=== PATIENT | male | born 1975 | race Caucasian/White ===

== ENCOUNTER 2017-02-15 20:14 | Inpatient (IN) ==
[2017-02-15] MEDS ORDERED: Aspirin 81 MG TAB.CHEW PO ONE (21:02)
[2017-02-15] MEDS ORDERED: GI Cocktail 40 ML EACH PO ONE (21:02)
[2017-02-15] MEDS: Nitroglycerin 0.4 MG TAB.SUBL SL ONE (21:50)
[2017-02-15 21:57] LABS: INR 1.1; Prothrombin Time 11.8 Seconds (9.4-12.1)
[2017-02-15 21:58] LABS: Basophils % 0.4 %; Eosinophils # 0.1 K/mcL (0.0-0.6); Eosinophils % 0.9 %; Hematocrit 41.2 % (37.5-50.1); Hemoglobin 14.4 g/dL (12.9-16.9); Immature Granulocytes % 0.2 % (0-4); Lymphocytes # 2.5 K/mcL (0.6-4.6); Lymphocytes % 25.6 %; Mean Corpuscular Hemoglobin 29.8 pg (28.0-33.3); Mean Corpuscular Volume 85.3 fL (83.0-100.0); Mean Platelet Volume 11.4 fL (9.4-12.4); Monocytes # 0.5 K/mcL (0.0-1.3); Monocytes % 5.4 %; Neutrophils # 6.5 K/mcL (1.6-8.9); Platelet Count 190 K/mcL (140-400); Red Blood Count 4.83 M/mcL (4.19-5.50); Red Cell Distribution Width 12.3 % (11.5-14.5); Segmented Neutrophils % 67.5 %
[2017-02-15 22:05] LABS: BUN/Creatinine Ratio 11 (6-26); Blood Urea Nitrogen 10 mg/dL (8-26); Calcium 9.5 mg/dL (8.6-10.8); Carbon Dioxide 22 mEq/L (19-29); Chloride 107 mEq/L (98-109); Glucose 96 mg/dL (70-99); Osmolality,Calculated 287 (280-300); Sodium 139 mEq/L (136-145); eGFR For African Americans > 60 (> 60); eGFR For Non-African Americans > 60 (> 60)
--- NOTE | 2017-02-15 22:14 | Emergency Department Note ---
START Narrative - START START: For this encounter, I have reviewed the resident, TRANSACTIONAL PARALEGAL, or PA documentation, treatment plan, and medical decision making; and I have had face to face time with this patient. 42-year-old male presents with concerns of left-sided chest pain. Patient states the pain has occurred intermittently over the past few hours. The pain is described as a tightness and an aching in the left chest that radiates down the left arm. Patient states that he became short of breath with these episodes of chest pain however he denies nausea or diaphoresis. Patient reports that he had palpitations during the chest pain. He denies syncope. He has risk factors of hypertension, hyperlipidemia, tobacco abuse. Lungs are clear to auscultation. Heart was regular rate and rhythm without murmurs rubs or gallops. Patient had good perfusion in all extremities. Initial troponin showed a normal sinus rhythm with rate of 66 without evidence of STEMI. Initial troponin returned at 0.25. Chest x-ray does not show acute pathology. Patient will be admitted to the hospital for further care and evaluation of his chest pain and elevated troponin.
[2017-02-15] MEDS ORDERED: *HR* Heparin 5,000 UNIT/ML VIAL IVP ONE (22:18)
[2017-02-15] MEDS ORDERED: *HR* Heparin 5,000 UNIT/ML VIAL IVP PRN ×2 (22:18)
[2017-02-15] MEDS ORDERED: Heparin 25,000 UNIT/500 ML D5W 25,000 UNIT/500 ML MLS IVC SCH (22:30)
--- NOTE | 2017-02-15 22:54 | Emergency Department Note ---
Disposition Clinical Impression: NSTEMI (non-ST elevated myocardial infarction) Chest pain Qualifiers: Chest pain type: unspecified Qualified Code(s): R07.9 - Chest pain, unspecified Disposition: Admitted As Inpatient Condition: Good Referrals: NO,PCP [Primary Care Provider] - Forms: ED Satisfaction Letter Time of Disposition: 23:29 Chest Pain HPI - General Chief Complaint: ED Chest Pain Stated Complaint: CP Time Seen by Provider: 02/15/17 20:42 Source: patient Limitations: no limitations Vital Signs Reviewed: Yes Nursing Notes Reviewed: Yes - History of Present Illness HPI Narrative: Patient presents emergency room with chest pain to the left chest wall pain on the left arm. Symptom onset was approximately 11 AM this morning. Patient decided come to the emergency room because the symptoms would not get better. Patient denies any other specific medical history at this time. He does smoke but has no cardiac history. Denies any exertional symptoms at this time. Chest pain comes on at variable times and presentations. He has not taken any medication help with this. 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 An hour for about 30 minutes) Treatments prior to arrival chest pain: none - Related Data Home Medications Medication Instructions Recorded Confirmed Ibuprofen [Motrin] 400 mg PO Q6HR PRN 02/15/17 02/15/17 Allergies Allergy/AdvReac Type Severity Reaction Status Date / Time No Known Allergies Allergy Verified 02/15/17 20:27 All systems ED: reviewed and negative except as stated. Constitutional: Denies: fever Cardiovascular: Reports: chest pain. Denies: palpitations, dyspnea on exertion Respiratory: Denies: cough, dyspnea, wheezes Chest Pain PMH - Past Medical History Medical history: Reports: hyperlipidemia Psychiatric history: Reports: no psych history - Social History Smoking Status: Current every day smoker Alcohol use: Reports: rarely Drug use: Reports: marijuana Physical Exam - General Limitations: no limitations General appearance: alert - Chest Chest inspection: Present: normal inspection, symmetric chest wall rise. Absent : tenderness, rash - Respiratory Respiratory exam: Present: normal lung sounds bilaterally. Absent: respiratory distress, wheezes - Cardiovascular Cardiovascular exam: Present: regular rate, normal rhythm, normal heart sounds - Abdominal Exam Abdominal exam: Present: soft, Non-Tender, normal bowel sounds. Absent: tenderness, distention, guarding, rebound, rigidity, Harley's sign, Rovsing's sign, tenderness at McBurney's Point - Extremities Exam Extremities exam: Present: normal inspection, full ROM. Absent: tenderness, pedal edema - Back Exam Back exam: Present: normal inspection, full ROM - Neurological Exam Neurological exam: Present: alert, oriented X3, CN II-XII intact, normal gait - Psychiatric Psychiatric exam: Present: normal affect, normal mood - Skin Skin exam: Present: warm, dry, intact, normal color Course Course Narrative: Patient seen and examined the time of arrival. See history of present illness. 42-year-old male presents today with cardiac symptoms. Left-sided chest pain with radiation to left arm. Patient has tightness and pain in that arm with exertion and while at rest. He has never had any cardiac disease in the past. No family history of early cardiac . Patient has never had a catheterization or stent. He does smoke and has intermittent hypertension according to him. He does not have a primary care provider does not follow them closely. Patient provided with aspirin and nitroglycerin trial here EKG chest x-ray and labs ordered including troponin. There is concern for possible cardiac related issues secondary to the symptom presentation and history. Vital signs reviewed on presentation is afebrile heart rate is normal. EKG reviewed and essentially showing no acute signs of ST segment elevation. There is mild amplitude changes of unknown etiology. A comparable EKG in the system. Intervals are within normal limits. Patient is concerning for cardiac related issue. We will continue to monitor. Disposition treatment course to be completed. Lungs are clear heart is regular abdomen is soft no pulsatile masses. No other acute infectious etiology or other signs of trauma or injury noted. The patient is point. Patient is concerning for cardiac related issue and will follow closely. - Reevaluation(s) Reevaluation #1: Patient found to have a troponin of 0.25. Nitroglycerin trial was provided and he said that even prior to the nitroglycerin he felt like his chest pain went away. He has no chest pain at this time. Aspirin given. Because of the elevated troponin and normal EKG along with stable chest x-ray heparin drip along with recommendation for admission for what appears to be in an STEMI. Patient has not had any change in presentation of chest related issues at this point. Labs are otherwise normal. Admission process to be completed. Consultation and patient was placed out of the hospitalist at this point to bring the patient in for further evaluation and definitive management Time: 22:58 Reevaluation #2: Patient discussed with the hospitalist Dr. Kennedy. We reviewed the patient's presentation symptoms of medical history. On recommendation from him at this time a stat on a urine drug screen. Patient is stable upper drip started. No chest pain while here in the emergency room not this time. Patient will be admitted to the hospital for further evaluation. Time: 23:29 Vital Signs Temperature 98.4 F 02/15/17 20:27 Pulse Rate 67 02/15/17 20:27 Respiratory Rate 14 02/15/17 20:27 Blood Pressure 170/108 02/15/17 20:27 O2 Sat by Pulse Oximetry 99 02/15/17 20:27 Temperature 98.4 F 02/15/17 20:27 Pulse Rate 68 02/15/17 21:54 Respiratory Rate 18 02/15/17 21:54 Blood Pressure 163/102 02/15/17 21:54 O2 Sat by Pulse Oximetry 98 02/15/17 21:54 Oxygen Delivery Oxygen Delivery Room Air Chest Pain - MDM Narrative Medical decision making narrative: Non-ST segment elevation myocardial infarction, elevated troponin - Lab Data Result diagrams: 02/15/17 21:43 02/15/17 21:43 Lab Results 02/15/17 02/15/17 02/15/17 Range/Units 21:43 21:43 21:43 WBC 9.6 (4.3-11.1) K/mcL RBC 4.83 (4.19-5.50) M/mcL Hgb 14.4 (12.9-16.9) g/dL Hct 41.2 (37.5-50.1) % MCV 85.3 (83.0-100.0) fL MCH 29.8 (28.0-33.3) pg MCHC 35.0 (31.6-35.5) g/dL RDW 12.3 (11.5-14.5) % Plt Count 190 (140-400) K/mcL MPV 11.4 (9.4-12.4) fL Immature Gran % 0.2 (0-4) % Seg Neutrophils % 67.5 % Lymphocytes % 25.6 % Monocytes % 5.4 % Eosinophils % 0.9 % Basophils % 0.4 % Neutrophils # 6.5 (1.6-8.9) K/mcL Lymphocytes # 2.5 (0.6-4.6) K/mcL Monocytes # 0.5 (0.0-1.3) K/mcL Eosinophils # 0.1 (0.0-0.6) K/mcL Basophils # 0.0 (0.0-0.2) K/mcL PT 11.8 (9.4-12.1) Seconds INR 1.1 APTT 38.0 H (26.0-36.0) Seconds Sodium (136-145) mEq/L Potassium (3.5-4.5) mEq/L Chloride (98-109) mEq/L Carbon Dioxide (19-29) mEq/L BUN (8-26) mg/dL Creatinine (0.72-1.25) mg/dL Est GFR ( Amer) (> 60) Est GFR (Non-Af Amer) (> 60) BUN/Creatinine Ratio (6-26) Glucose (70-99) mg/dL Calculated Osmolality (280-300) Calcium (8.6-10.8) mg/dL Troponin I (0-0.03) ng/mL B-Natriuretic Peptide 14 (0-100) pg/mL 02/15/17 02/15/17 Range/Units 21:43 21:43 WBC (4.3-11.1) K/mcL RBC (4.19-5.50) M/mcL Hgb (12.9-16.9) g/dL Hct (37.5-50.1) % MCV (83.0-100.0) fL MCH (28.0-33.3) pg MCHC (31.6-35.5) g/dL RDW (11.5-14.5) % Plt Count (140-400) K/mcL MPV (9.4-12.4) fL Immature Gran % (0-4) % Seg Neutrophils % % Lymphocytes % % Monocytes % % Eosinophils % % Basophils % % Neutrophils # (1.6-8.9) K/mcL Lymphocytes # (0.6-4.6) K/mcL Monocytes # (0.0-1.3) K/mcL Eosinophils # (0.0-0.6) K/mcL Basophils # (0.0-0.2) K/mcL PT (9.4-12.1) Seconds INR APTT (26.0-36.0) Seconds Sodium 139 (136-145) mEq/L Potassium 4.0 (3.5-4.5) mEq/L Chloride 107 (98-109) mEq/L Carbon Dioxide 22 (19-29) mEq/L BUN 10 (8-26) mg/dL Creatinine 0.92 (0.72-1.25) mg/dL Est GFR ( Amer) > 60 (> 60) Est GFR (Non-Af Amer) > 60 (> 60) BUN/Creatinine Ratio 11 (6-26) Glucose 96 (70-99) mg/dL Calculated Osmolality 287 (280-300) Calcium 9.5 (8.6-10.8) mg/dL Troponin I 0.25 H* (0-0.03) ng/mL B-Natriuretic Peptide (0-100) pg/mL Heart Score - Score History: Moderately Suspicious EKG: Normal Age: Less than 45 Risk Factors: 1-2 risk factors Troponin: 1-3x normal limit HEART Score Total: 3
[2017-02-16] MEDS ORDERED: Naloxone 0.4 MG/ML INJ IVP PRN (01:34)
[2017-02-16] MEDS ORDERED: *HR* Promethazine 25 MG/ML VIAL IVP PRN (01:34)
[2017-02-16] MEDS ORDERED: 0.9 % Sodium Chloride 1,000 ML IVC SCH (01:45)
[2017-02-16] MEDS ORDERED: Nicotine 21 MG PATCH.TD24 TD PRN (02:14)
--- NOTE | 2017-02-16 02:22 | Internal Med History&Physical ---
<Zohreh Olmstead Angelic - Last Filed: 02/16/17 02:59> Date of Encounter: 02/16/17 Time of Encounter: 02:21 Assessment and Plan (1) NSTEMI (non-ST elevated myocardial infarction) Current visit: Yes Status: Acute trop .25 EKG:NSR CXR- will trend troponoin UDS lipid panel declined nitroglycerin due to causing headache morphine BP 152/99 consider BB, pulse of 58 may not tolerate well consult to cardio (2) Chest pain Current visit: Yes Status: Acute Qualifiers: Chest pain type: unspecified Qualified Code(s): R07.9 - Chest pain, unspecified (3) Elevated troponin Current visit: Yes Status: Acute (4) Nausea Current visit: Yes Status: Acute (5) HTN (hypertension) Current visit: Yes Status: Acute 152/99, pulse of 58 consider BB pulse of 58 may not tolerate BB well Qualifiers: Hypertension type: essential hypertension Qualified Code(s): I10 - Essential (primary) hypertension (6) HLD (hyperlipidemia) Current visit: Yes Status: Acute lipid panel Qualifiers: Hyperlipidemia type: unspecified Qualified Code(s): E78.5 - Hyperlipidemia , unspecified (7) Tobacco abuse Current visit: Yes Status: Acute nicotine patch prn (8) Epigastric abdominal pain Current visit: Yes Status: Acute lipase Internal Medicine - H&P: HPI Chief complaint: chest pain Admitted From: Home Plans for Post Hospital Care: Home History of present illness: Mr. Rodriguez is a 42 year old male c/o CP. PMHx smoking, HTN. Pt states that chest pain was a severe sharp midsternal pain that radiated to shoulder and down the left arm. At this time he also felt his heart racing, became very sweaty. Pt states he also has some nausea and epigastric pain. Pt states prior to this event he had been arguing with a family member and had an increased amount of stress. 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 Second episode of chest pain occurred this evening after argument. This time pain did not resolve and continued to get worse on his way to the hospital. Pt states he still does have some substernal CP and epigastric pain, has decreased about 70%. He states other symptoms have resolved. Pt states he is an every day smoker, drinks a 12pack of mountain dew a day. Pt also states he did have an episode similar to this, which at that time he was told it was stress related. Pt denies syncope, current palpitation, sob, numbness, tingling. Past Med Surg Social Fam HX - Past Medical History Medical history: hyperlipidemia, hypertension Psychiatric history: no psych history - Social History Smoking Status: Current every day smoker Packs per day: 1 Smokeless Tobacco Status: Yes Alcohol use: none Drug use: marijuana Occupational status: employed Current living situation: Home Activity Level: Independent ambulation Recent Out of Country Travel Within the Last 8 Weeks: No - Family History Grandfather Hx Family Cardiac Disorders: Yes (Heart attack) Grandmother Hx Family Genitourinary Disorders: Yes (Dialysis) Internal Medicine - H&P: Meds Ibuprofen [Motrin] 400 mg PO Q6HR PRN 02/15/17 [History] Allergies No Known Allergies Allergy (Verified 02/15/17 20:27) All Systems PM: A 10-system review of systems was performed and is negative for pertinent findings except as documented above in the HPI. - Constitutional Constitutional: chills, excessive sweating, no fever(s), no falls - EENT Eyes: no change in vision, no discharge, no pain, no photophobia - Cardiovascular Cardiovascular ROS IM: chest pain, diaphoresis, irregular heart rhythm, palpitations, no dyspnea, no lightheadedness, no syncope - Respiratory Respiratory: no cough, no dyspnea, no wheezing, no excessive phlegm production - Gastrointestinal Gastrointestinal: abdominal pain, nausea, no vomiting - Genitourinary Genitourinary ROS male: as per HPI - Musculoskeletal Musculoskeletal ROS IM: no numbness, no tingling - Integumentary Integumentary IM: no rash, no unusual bruising - Neurological Neurological ROS: no confusion, no convulsions, no focal weakness, no numbness, no tingling, no tremor(s) - Constitutional Vitals: Temp Pulse Resp BP Pulse Ox 97.8 F 64 14 152/99 95 02/16/17 02:20 02/16/17 02:20 02/16/17 02:20 02/16/17 02:20 02/16/17 02:20 General appearance: Present: A&O X 3, no acute distress, answers questions appropriately - Head Head exam: Present: atraumatic, normocephalic - Eye Eye exam: Present: EOMI, PERRL, conjuntiva pink, sclera anicteric Pupils: Present: PERRL - ENT ENT exam: Present: mucous membranes moist - Neck Neck exam general surgery: Present: supple, trachea midline. Absent: lymphadenopathy - Respiratory Respiratory exam: Present: CTAB. Absent: accessory muscle use, rales, respiratory distress, rhonchi, wheezes - Cardiovascular Cardiovascular exam: Present: RRR, +S1, +S2. Absent: diastolic murmur, gallop, rubs, systolic murmur - GI/Abdominal GI/Abdominal exam: Present: normal bowel sounds, soft, tenderness (epigastric, mild), no peritoneal signs. Absent: guarding, rebound, rigid - Extremities Exam Extremities exam: Present: normal capillary refill, radial pulses palpable and symetrical. Absent: cyanotic - Neurological Exam Neurological exam: Present: CN II-XII intact, oriented X3, no focal deficits. Absent: pronater drift, facial droop, speech deficit - Skin Skin exam: Present: dry, intact, warm. Absent: cyanosis, diaphoretic Internal Med - H&P Results - Labs CBC & Chem 7: 02/15/17 21:43 02/15/17 21:43 <Morgan Kennedy - Last Filed: 02/16/17 03:09> Internal Medicine - H&P: HPI History of present illness: Mr. Rodriguez is a 42 year old male All Systems PM: A 10-system review of systems was performed and is negative for pertinent findings except as documented above in the HPI. - Constitutional Vitals: Temp Pulse Resp BP Pulse Ox 97.8 F 64 14 152/99 95 02/16/17 02:20 02/16/17 02:20 02/16/17 02:20 02/16/17 02:20 02/16/17 02:20 Internal Med - H&P Results - Labs CBC & Chem 7: 02/15/17 21:43 02/15/17 21:43 - Attending Attestation I examined this patient and my medical decision-making was reviewed with the DITCH INSPECTOR/PA/Advanced Practice Nurse/Resident Physician. I agree with the documented findings, disposition and treatment plan as described except to the extent set forth below. I discussed the case with Dr. Olmstead. I agree with the physical examination findings, assessment and plan as documented by Dr. Olmstead. I did examine the patient independently. Briefly, patient with an STEMI, continue with heparin drip. Follow trend of cardiac biomarkers. Echocardiogram. Evaluation by cardiology. Discussed with patient. Continue telemetry monitoring. Urine toxicology requested.
[2017-02-16] MEDS: *HR* Morphine 2 MG/ML SYRINGE IVP PRN ×4 (02:23→20:50)
[2017-02-16 05:19] LABS: INR 1.1; Prothrombin Time 11.9 Seconds (9.4-12.1)
[2017-02-16 05:22] LABS: Activated Partial Thrombo Time 50.6 Seconds (26.0-36.0); Hematocrit 41.7 % (37.5-50.1); Hemoglobin 14.1 g/dL (12.9-16.9); Mean Corpuscular HGB Conc 33.8 g/dL (31.6-35.5); Mean Corpuscular Hemoglobin 29.1 pg (28.0-33.3); Mean Platelet Volume 12.3 fL (9.4-12.4); Platelet Count 161 K/mcL (140-400); Red Blood Count 4.85 M/mcL (4.19-5.50); Red Cell Distribution Width 12.2 % (11.5-14.5)
[2017-02-16] MEDS: Pantoprazole 40 MG VIAL IVP SCH (05:37)
[2017-02-16 05:49] LABS: Albumin 3.9 g/dL (3.5-5.0); Albumin/Globulin Ratio 1.3 (1.1-2.2); Bilirubin,Direct 0.2 mg/dL (0.0-0.5); Bilirubin,Indirect 0.5 mg/dL (0.0-1.2); Bilirubin,Total 0.7 mg/dL (0.2-1.2); Globulin 2.9 g/dL (2.4-3.5); Total Protein 6.8 g/dL (6.0-8.3)
[2017-02-16 05:52] LABS: BUN/Creatinine Ratio 11 (6-26); Blood Urea Nitrogen 9 mg/dL (8-26); Calcium 8.6 mg/dL (8.6-10.8); Carbon Dioxide 23 mEq/L (19-29); Chloride 108 mEq/L (98-109); Chol/HDL Ratio 4.1 (0-4.9); Cholesterol 142 mg/dL (< 200); Glucose 92 mg/dL (70-99); HDL Cholesterol 35 mg/dL (40-59); LDL Cholesterol,Calculated 93 mg/dL (0-99); Magnesium 2.3 mg/dL (1.6-2.6); Osmolality,Calculated 290 (280-300); Phosphorous 3.8 mg/dL (2.3-4.7); Potassium 3.6 mEq/L (3.5-4.5); Sodium 141 mEq/L (136-145); Triglycerides 71 mg/dL (< 150); eGFR For African Americans > 60 (> 60); eGFR For Non-African Americans > 60 (> 60)
[2017-02-16 05:59] LABS: Amphetamine Screen,Urine Negative ng/mL (Cutoff=1000); Barbiturate Screen,Urine Negative ng/mL (Cutoff=200); Benzodiazepines Screen,Urine Negative ng/mL (Cutoff=200); Cannabinoid Screen,Urine Positive ng/mL (Cutoff = 50); Cocaine Screen,Urine Negative ng/mL (Cutoff= 300); Opiate Screen,Urine Positive ng/mL (Cutoff=300); Phencyclidine Screen,Urine Negative ng/mL (Cutoff=25)
[2017-02-16] MEDS: Aspirin 81 MG TAB.CHEW PO SCH (09:06)
--- NOTE | 2017-02-16 09:30 | Cardiology Consult Note ---
Date of Encounter: 02/16/17 Time of Encounter: 08:45 Assessment and Plan (1) NSTEMI (non-ST elevated myocardial infarction) Current Visit: Yes Status: Acute Patient's troponin trending up 0.25, 0.88 EKG is NSR without T wave abnormality, unchanged from previous Currently on heparin ggt, ASA 81mg, Lipitor 40mg ECHO pending MAX Score 3 Plan: Given patient's significant risk factors, angina, and rising troponins will proceed with [facility] for small NSTEMI today Plavix 600mg now Continue ASA, Lipitor Keep patient NPO We will follow up with further recommendations following C (2) Elevated troponin Current Visit: Yes Status: Acute (3) Chest pain Current Visit: Yes Status: Acute Qualifiers: Chest pain type: chest pain due to myocardial ischemia Qualified Code(s): I20.9 - Angina pectoris, unspecified (4) HLD (hyperlipidemia) Current Visit: Yes Status: Chronic LDL 93 Patient started on Lipitor 40mg Qualifiers: Hyperlipidemia type: unspecified Qualified Code(s): E78.5 - Hyperlipidemia , unspecified (5) Tobacco abuse Current Visit: Yes Status: Chronic Nicotine patch prn Eight minutes spent with patient and his explaining benefits of smoking cessation Patient and verbalized understanding Discussion w patient/family: The assessment and plan as outlined above was discussed with the patient and/or family members who expressed understanding and agreement. All questions were answered. Thank you for involving us in the care of your patient. Please call with any questions. History of Present Illness Consult date: 02/16/17 Requesting physician: Zohreh Olmstead Consult reason: chest pain, elevated trops Chief complaint: substernal chest pain History of present illness: Mr. Rodriguez is a 42 year old male who presented to [facility] ED 1 day ago with complaint of substernal chest pain. Patient states pain radiates from sternum to left arm. Pain is described as "pressure" with a feeling of "tension" in the left arm. Patient states that pain lasted approximately 2-3 minutes, then dissipated without intervention. Patient sates that pain returned and remitted multiple times from midday to yesterday evening, prompting presentation to ED. Patient states that he has had multiple occurrences of chest pain in the last few years, each episode lasting a few minutes. Patient has 28 pack year history of smoking (28 x 1ppd). He admits to smoking marijuana, but denies use of other illicit substances. He is unsure of his family's medical conditions. Past Med Surg Social Fam HX - Past Medical History Medical history: hyperlipidemia Psychiatric history: no psych history - Social History Smoking Status: Current every day smoker Packs per day: 1 Smokeless Tobacco Status: Yes Alcohol use: none Drug use: marijuana - Family History Grandfather Hx Family Cardiac Disorders: Yes (MYOCARDIAL INFARCTION.) Grandmother Hx Family Genitourinary Disorders: Yes (CHRONIC KIDNEY DISEASE, DIALYSIS.) Medications and Allergies Ibuprofen [Motrin] 400 mg PO Q6HR PRN 02/15/17 [History] Allergies No Known Allergies Allergy (Verified 02/15/17 20:27) All Systems Review: A 10-system review of systems was performed and is negative for pertinent findings except as documented above in the HPI. Physical Examination Vital Signs, Last 4 Hours Temp Pulse Resp BP Pulse Ox 02/16/17 07:23 97.9 F 58 15 134/89 98 General: Conversant, No Apparent Distress HEENT: Atraumatic, Normocephaly, Mucus Membranes Moist Neck: No JVD, Normal carotid pulses Cardiac: Reg Rate and Rhythm, Normal S1 and S2, No Murmur Lungs: Other (expiratory wheezing in lung bases bilaterally) Neuro: Alert and responsive, No focal deficits noted Abdomen: Soft, Non-Tender Skin: No rashes noted on visualized skin Musculoskeletal: No Chest Wall Tenderness Extremities: No Clubbing, No Cyanosis, No Edema, Normal Pulses Results 02/16/17 04:06 02/16/17 04:06 Lab Results 02/16/17 02/16/17 02/16/17 04:06 04:06 04:06 WBC 7.4 Hgb 14.1 Hct 41.7 Plt Count 161 INR 1.1 APTT 50.6 H Sodium Potassium Chloride Carbon Dioxide BUN Creatinine Glucose Calcium Magnesium Total Bilirubin AST ALT Alkaline Phosphatase Troponin I 0.88 H* Lipase 02/16/17 02/16/17 04:06 04:06 WBC Hgb Hct Plt Count INR APTT Sodium 141 Potassium 3.6 Chloride 108 Carbon Dioxide 23 BUN 9 Creatinine 0.84 Glucose 92 Calcium 8.6 Magnesium 2.3 Total Bilirubin 0.7 AST 22 ALT 21 Alkaline Phosphatase 59 Troponin I Lipase 40 - Imaging and Cardiology Chest Xray: report reviewed, image reviewed - EKG Interpretation EKG results cardiology: personally reviewed, normal ECG, sinus rhythm Consult Discharge Plan - Plan Instructions: Myocardial Infarction (DC), Left Heart Catheterization (DC) Referrals: Hayden Arita DO [Resident] - 05/12/17 1:30 pm (The office will mail you a new patient packet. Please arrive 15 mins early to your first appointment and bring any current medications you are taking. Please bring a copy of your insurance card and photo ID. If you need to cancel for any reason please do so 24 hours in advance.)
[2017-02-16] MEDS: Acetaminophen 325 MG TABLET PO PRN (10:12)
[2017-02-16] MEDS ORDERED: Heparin 1,000 UNITS/500 mL NS 0 ML ONE (12:44)
[2017-02-16] MEDS ORDERED: 0.9 % Sodium Chloride 1,000 ML ONE ×5 (12:44→18:40)
[2017-02-16] MEDS ORDERED: Verapamil 5 MG/2 ML VIAL ONE ×2 (12:44→17:08)
[2017-02-16] MEDS ORDERED: Nitroglycerin 1,000 MCG/10 ML VIAL IV ONE ×2 (12:45→17:09)
[2017-02-16] MEDS ORDERED: *HR* Heparin 10,000 UNIT/10 ML VIAL ONE ×2 (12:45→17:09)
[2017-02-16] MEDS ORDERED: *HR* Midazolam HCl 2 MG/2 ML VIAL ONE ×2 (14:30→14:56)
[2017-02-16] MEDS ORDERED: *HR* FentaNYL (PF) 100 MCG/2 ML VIAL ONE (14:30)
--- NOTE | 2017-02-16 14:48 | ECHO - Doppler Report ---
Echocardiogram Name: [facility] Andrea Rodriguez Date of Study: 02/16/2017 Date: 1975 Ht: 69.0 in Medical Record#: [id number] Age: 42 Wt: 185.0 lb Gender: Male BSA: 2 Order #: [id number] Location: [facility] Room #: 3B37 Reading Physician: Citlaly Farrell DO Insurance Account Assistant: Matheus Gibbs RN Ordering Physician: Zohreh Olmstead DO Primary Physician: None Indications: Elevated Troponin Impressions: LVEF 55%. Normal left ventricular size and systolic function. There is evidence of mild diastolic dysfunction of the left ventricle. Normal right ventricular size and function. No significant valvular dysfunction. No pulmonary hypertension. Left Ventricular Wall Motion: Rest Echo Findings All wall segments showed normal motion. Findings: Study Quality * Technically adequate exam. ECG Findings * Sinus bradycardia. Aortic Valve * No aortic regurgitation. * Trileaflet aortic valve. * Normal aortic valve structure. * No aortic stenosis. Mitral Valve * No mitral regurgitation. * Normal mitral valve structure. * No mitral stenosis. Tricuspid Valve * Tricuspid valve not well visualized. * No tricuspid regurgitation. * Estimated RA pressure is 3 mmHg. Pulmonic Valve * Pulmonic valve is not well visualized. * No pulmonic stenosis. * No pulmonic regurgitation. Pulmonary Artery * Pulmonary artery not well visualized. Right Ventricle * Normal right ventricular structure and function. Left Atrium * Normal left atrial size. Right Atrium * Normal right atrial size. Left Ventricle * LVEF 55%. * Normal LV chamber size, wall thickness and function. * Mild left ventricular diastolic dysfunction. Interatrial Septum * No evidence of PFO by color Doppler. IVC * Normal IVC dimensions and inspiratory collapse. Pericardium * There is no pericardial effusion present. Aorta * Normally sized aortic root. History History of Smoking Years 28 Packs 1 Measurements: BP: 142/ 92 2D Normal Values IVSd: 1.20 cm 0.6 - 1.0 cm LVIDd: 4.20 cm 3.7 - 5.6 cm LVPWd: 1.20 cm 0.6 - 1.1 cm LVIDs: 3.00 cm 1.5 - 3.6 cm LA: 2.80 cm 2.0 - 4.0cm %FS: 28.60 cm >25 % LVOT Diam: 2.00 cm LA volume: 80 Mitral Valve Peak E:.56 m/sec Peak A:.61 m/sec E/A Ratio:0.9 Peak E' Lat Patrick:10.4 cm/s Peak E' Med Patrick:5.65 cm/s E/E' Lat Ratio:5.4 E/E' Med Ratio:9.9 Updated by Citlaly Farrell on 02/16/2017 2:41:37 PM electronically signed on 02/16/2017 2:43:03 PM with status of Final Wall Motion Osorio: 1=Normal, 2=Hypokinesis, 3=Akinesis, 4=Dyskinesis, 5=Aneurysmal, 6=Hyperkinetic, X=Not Visualized (Blank)=Missing
--- NOTE | 2017-02-16 15:14 | Pre-Sedation Evaluation ---
Pre-sedation evaluation - Pre-sedation checklist Date of procedure: 02/16/17 Procedure: [facility] Recent Vitals: Last Vital Signs Temp 98.0 F 02/16/17 11:43 Pulse 52 02/16/17 11:43 Resp 16 02/16/17 11:43 BP 142/92 02/16/17 11:43 Pulse Ox 98 02/16/17 11:43 H&P (including ROS) documented in medical record: Yes Previous reaction to sedatives/anesthetics: No Dietary Status: NPO after Midnight Airway Assessment: Patient can open mouth completely, TMJ function normal ASA Classification *see protocol: CLASS II-Mild systemic disease Plan of Care: Pt appropriate candidate for procedure/moderate/conscious sedation , Risks/benefits of procedure/sedation discussed w/ patient/family
--- NOTE | 2017-02-16 15:56 | Invasive Diagnostic Lab Proc ---
Name: Stephon Rodriguez Date of Study: 02/16/2017 Date: 1975 Ht: 68.9in Medical Record#: [id number] Age: 42 Wt: 185.41lb Gender: Male BSA: 2. Order #: [id number] BMI: 27.46 Physicians Procedure Physician: Shankar Contreras MD, [facility] Referring MD: Referring MD: Staff Name Position Time In Mona Mckeon RN Satellite Communications Operator 03:04 PM Madeleine Dominique RT (R) Scrub 03:04 PM Pat Olivier RN Monitor 03:04 PM Indications Indication Non-Stemi Procedures Performed Procedure L HRT ARTERY/VENTRICLE ANGIO PRQ CARD MATTHIAS STENT W/ANGIO 1 VSL Pre-Procedure Checklist Informed consent is complete signed and on chart. H\\T\\P is on chart. ID band is on and ID verified with patient. Patient NPO for procedure The procedure was described for the patient and questions were answered. Blood Pressure: 134/89 ECG is on chart. Rhythm: Sinus Bradycardia Plan of Care Patient will tolerate the procedure without complications. Adequate level of comfort will be maintained. Hemodynamics will remain stable Patient will recover from procedure without complications. Respiratory function will be maintained. Cardiac rhythm will remain stable. Patient temperature will be maintained. Patient and/or family have verbalized understanding of the procedure. Patient Education Chief Complaint/Reason for Test: Cardiac Cath Developmental Category: Adult (18-64 years) Developmentally Appropriate for Age: Yes Learning Barriers: None Education Needs: Procedure Education Method: Verbal Information Taught: Cardiac Cath Educational Evaluation: Able to repeat information Intravenous Access Time IV Size Location DC'd Fluid/Drip Rate Units RN 11:08 AM 20g 1 /" Patent On Arrival Lt Hand Allergies No Known Allergies Vital Signs Time BP (mmHg) HR (bpm) O2 Sat. RR (bpm) LOC 11:09 AM 134 / 89 58 98 % 15 5 = Fully awake and oriented or at pre-proc level 03:05 PM / % 5 = Fully awake and oriented or at pre-proc level 03:05 PM / % 5 = Fully awake and oriented or at pre-proc level 03:20 PM / % 5 = Fully awake and oriented or at pre-proc level 03:26 PM / % 5 = Fully awake and oriented or at pre-proc level 03:02 PM 150 / 83 82 98 % 16 03:06 PM 147 / 83 64 98 % 20 03:11 PM 146 / 80 67 96 % 03:16 PM 123 / 78 60 96 % 14 03:21 PM 134 / 83 67 96 % 8 03:26 PM 125 / 72 71 95 % 14 03:31 PM 141 / 84 64 95 % 17 03:36 PM 157 / 85 65 96 % 19 03:41 PM 166 / 75 64 97 % 18 03:32 PM / % 5 = Fully awake and oriented or at pre-proc level Procedural Medications Time Medication Dose Units Method Given By 03:04 PM Oxygen 2 L/min nasal cannula Mona Mckeon RN 03:04 PM Versed 2 mg Intravenous Mona Mckeon RN 03:05 PM Fentanyl 50 mcg Intravenous Mona Mckeon RN 03:08 PM Versed 1 mg Intravenous Mona Mckeon RN 03:17 PM Lidocaine 2% 0.5 ml Subcutaneous Shankar Contreras MD, FAC 03:20 PM Heparin 2000 units Nitroglycerin 200 mcg Verapamil 2.5 mg Intraarterial Shankar Contreras MD, FACC 03:20 PM Versed 1 mg Intravenous Mona Mckeon RN 03:20 PM Fentanyl 25 mcg Intravenous Mona Mckeon RN 03:29 PM Heparin 3000 units Intravenous Mona Mckeon RN 03:35 PM Nitroglycerin 150 mcg Intracoronary Shankar Contreras MD 03:41 PM Plavix 75 mg Orally Mona Mckeon RN ASA Classification: CLASS II- Mild systemic disease (i.e. well-controlled diabetes, hypertension, asthma, cigarette smoking) Makenna Score Preprocedure Postprocedure Activity 2- Moves 4 extremities sustained head lift Activity 2- Moves 4 extremities sustained head lift Circulation 2- SBP +/= 20 points of pre-anesthetic level Circulation 2- SBP +/= 20 points of pre-anesthetic level Consciousness 2- Awake and alert oriented x 3 Consciousness 2- Awake and alert oriented x 3 O2 Saturation 2- Able to maintain O2 satruation of 92% on room air O2 Saturation 2- Able to maintain O2 satruation of 92% on room air Respiratory 2- Able to deep breathe and cough well Respiratory 2- Able to deep breathe and cough well Total Score 10 Total Score 10 Contrast Agent: Isovue Diagnostic Contrast: 77 ml Total Contrast: 77 ml Fluoro Dose: 320 mGy Activated Clotting Time Time Seconds to Clot 03:29 PM 184 Procedure Log Time Note Enter By 02:16 PM pt to HR 4 in anticipation of 1430 [facility], pt in wheelchair with call light, portable school lunch monitor present and attached to patient csmith 03:00 PM Vitals capture started with the following parameters, Patient=Adult, Interval=5 min, Initial Kevihpme=332 mmHg, Deflation Rate=5 mmHg, Cuff placed on Left Arm 03:02 PM HR=82 bpm, TQVE=785/83 mmhg, SpO2=98.0 %, Resp=16 B/min, Comment=SR 03:04 PM 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 Right wrist prepped with Chloraprep by Mona Mcekon RN, safety strap applied then patient was draped. Skin intact. ejohnson 03:04 PM Physician arrived 15:04 ejohnson 03:04 PM ASA Class CLASS II- Mild systemic disease (i.e. well-controlled diabetes, hypertension, asthma, cigarette smoking) ejohnson 03:04 PM Meet and greet completed ejohnson 03:04 PM Sign in performed according to hospital policy. ejohnson 03:04 PM Procedure start 15:04 ejohnson 03:04 PM Time: 15:04 Oxygen on at 2 L/min per nasal cannula by Mona Mckeon RN ejohnson 03:05 PM Time: 15:04 Versed 2 mg Intravenous Given by Mona Mckeon RN ejrheansarsen 03:05 PM Time: 15:05 Fentanyl 50 mcg Intravenous Given by Mona Mckeon RN ejphillip 03:05 PM Time: 15:05 Patient comfortable and pain free: Yes ejohnson 03:05 PM Time: 15:05LOC: 5 = Fully awake and oriented or at pre-proc level ejohnson 03:06 PM HR=64 bpm, YBHB=349/83 mmhg, SpO2=98.0 %, Resp=20 B/min, Comment=SR 03:08 PM Time: 15:08 Versed 1 mg Intravenous Given by Mona Mckeon RN ejohnsarsen 03:10 PM Pressure channel 1 zeroed. 03:11 PM HR=67 bpm, LEDJ=541/80 mmhg, SpO2=96.0 %, Comment=SR 03:11 PM Heparin gtt ws turned off at 1425 per CTroy Del Angel RN ejohnson 03:16 PM HR=60 bpm, JOXF=079/78 mmhg, SpO2=96.0 %, Resp=14 B/min, Comment=SR 03:17 PM Time out performed according to hospital policy ejohnson 03:17 PM Time: 15:17 0.5 ml Lidocaine 2% to right radial Subcutaneous Given by Shankar Contreras MD, [facility] ejohnson 03:18 PM Recorded ECG: HR=63 Condition=Condition 1 03:19 PM Access obtained by percutaneous puncture. 6Fr 10cm Terumo Glidesheath sheath placed in right Radial artery. [id number] ejohnson 03:20 PM Time: 15:20 Patient given 2,000 units Heparin, 200 mcg Nitroglycerin, and 2.5 mg Verapamil Intraarterial by Shankar Contreras MD, [facility] ejohnson 03:20 PM Time: 15:05LOC: 5 = Fully awake and oriented or at pre-proc level ejohnson 03:20 PM Time: 15:05 Patient comfortable and pain free: Yes ejohnson 03:20 PM Time: 15:20 Versed 1 mg Intravenous Given by Mona Mckeon RN ejohnson 03:20 PM Time: 15:20 Fentanyl 25 mcg Intravenous Given by Mona Mckeon RN ejohnson 03:21 PM 5Fr TIG catheter inserted over the wire [facility] ejohnson 03:21 PM wire removed ejohnson 03:21 PM LCA angiography performed in multiple views. ejohnson 03:21 PM Recorded Pressure: Ao, HR=69, Condition=Condition 1 (Aorta) Ao 88/69/79 03:21 PM HR=67 bpm, UMJG=225/83 mmhg, SpO2=96 %, Resp=8 B/min 03:23 PM Recorded Pressure: Ao, HR=77, Condition=Condition 1 (Aorta) Ao 87/73/81 03:23 PM RCA angiography performed in multiple views. ejohnson 03:23 PM Coronary Dominance: right ejohnson 03:24 PM Lesion found in Proximal RCA. Pre Stenosis: 90 Pre MAX Flow: 3: Complete and Brisk Flow/Perfusion ejohnson 03:24 PM Right Coronary, Right Posterior Descending Arteries with Right Posterolateral and Acute Marginal branches with 90 % stenosis. ejohnson 03:24 PM Catheter removed ejohnson 03:24 PM 5Fr Pigtail catheter inserted over the wire [facility] ejohnson 03:24 PM Catheter selectively placed in left ventricle ejohnson 03:25 PM Pressure channel 1 zeroed. 03:25 PM Bolus angiogram of left Ventricle complete: 10 ml/sec for a total of 20 mls ejohnson 03:25 PM Recorded Pressure: LV, HR=69, Condition=Condition 1 (Left Ventricle) LV 107/8/9 03:26 PM HR=71 bpm, LAMX=757/72 mmhg, SpO2=95.0 %, Resp=14 B/min, Comment=SR 03:26 PM wire removed ejohnson 03:26 PM Recorded Pressure: LV, Ao, HR=71, Condition=Condition 1 (Left Ventricle) LV 85/10/17, (Aorta) Ao 101/69/85 03:26 PM Time: 15:20LOC: 5 = Fully awake and oriented or at pre-proc level ejohnson 03:26 PM Time: 15:20 Patient comfortable and pain free: Yes ejohnson 03:26 PM Catheter removed ejohnson 03:27 PM Inflation device was opened. ejohnson 03:27 PM 6Fr JR 4 Runway guide catheter was used to cannulate the PCI vessel successfully. reused? No ejohnson 03:28 PM wire removed ejohnson 03:29 PM At 15:29 the ACT was 184 seconds. ejohnson 03:29 PM Time: 15:29 Heparin 3000 units Intravenous Given by Mona Mckeon RN ejohnson 03:30 PM 2.5 mm x 12 mm Emerge Monorail balloon across target lesion- successful. reused? No ejohnson 03:30 PM .014 PT Graphix 180cm guide wire across target lesion- successful. reused? No ejohnson 03:31 PM HR=64 bpm, CVHF=840/84 mmhg, SpO2=95.0 %, Resp=17 B/min, Comment=SR 03:31 PM Balloon inflated @ 14 melissa for 9 seconds ejohnson 03:32 PM Time: 15:26LOC: 5 = Fully awake and oriented or at pre-proc level ejohnson 03:32 PM Time: 15:26 Patient comfortable and pain free: Yes ejohnson 03:32 PM Balloon inflated @ 14 melissa for 8 seconds ejohnson 03:33 PM Balloon catheter removed intact. ejohnson 03:33 PM 4.0mm x 16mm Synergy drug-eluting stent across target lesion- successful Lot #[id number] ejohnson 03:34 PM Stent deployed @ 16 melissa for 18 seconds ejohnson 03:34 PM Recorded Pressure: Ao, HR=67, Condition=Condition 1 (Aorta) Ao 133/103/118 03:35 PM Time: 15:35 Nitroglycerin 150 mcg Intracoronary Given by Shankar Contreras MD ejohnson 03:36 PM HR=65 bpm, PXVH=526/85 mmhg, SpO2=96.0 %, Resp=19 B/min, Comment=SR 03:37 PM Stent delivery system removed intact. ejohnson 03:37 PM 4.0 mm x 12mm NC Emerge balloon across target lesion- successful. reused? No ejohnson 03:38 PM Balloon inflated @ 20 melissa for 5 seconds ejohnson 03:38 PM Balloon inflated @ 20 melissa for 7 seconds ejohnson 03:39 PM Balloon catheter removed intact. ejohnson 03:39 PM Guide wire removed intact. ejohnson 03:39 PM Guide catheter removed intact. ejohnson 03:40 PM Procedure completed at 15:40 ejohnson 03:41 PM Arterial sheath pulled, Vasc Band closure device used and was Successful S/N. ejohnson 03:41 PM Time: 15:41 Plavix 75 mg Orally Given by Mona Mckeon RN ejohnson 03:41 PM HR=64 bpm, VGFX=207/75 mmhg, SpO2=97.0 %, Resp=18 B/min, Comment=SR 03:42 PM Sign out completed: Radiation Dose 319.5 mGy Fluoro Time: 5 Isovue 370 - 200ml contrast 77 ml given by Shankar Contreras MD, [facility]. Complications: NoneCardiac Rehab Consult needed: YesConfirmed administered medications: Yes ejohnson 03:42 PM Isovue 370 - 200ml,1 Bottle(s) used. ejohnson 03:43 PM 12 ml air in Vasc Band. ejohnson 03:43 PM Post ECG NSR ejohnson 03:43 PM Post Blood Pressure 166/75 ejohnson 03:43 PM 15:43 Post Pulses Rt Radial 1+ ejohnson 03:43 PM Information taught PCI and Vasc Band ejohnson 03:43 PM Education needs Plan of Care and Responsibilities of Patient in Care ejohnson 03:44 PM Learning barriers :None ejohnson 03:44 PM Education Methods Verbal ejohnson 03:44 PM Education evaluation Able to repeat information ejohnson 03:44 PM Site status No bleeding/hematoma - Rt Wrist as reported by Madeleine Dominique RT (R) at 15:44 ejohnson 03:44 PM Plavix, Effient or Brilinta given Yes ejohnson 03:44 PM Family placed in consult room. ejohnson 03:44 PM Complications: None ejohnson 03:46 PM Report given to Andreia JI Pt taken to 3B Room #37. 15:45 ejohnson 03:46 PM Delay to floor No ejohnson 03:46 PM Patient out of room: 15:46 ejohnson 03:47 PM Time: 15:32LOC: 5 = Fully awake and oriented or at pre-proc level ejohnson 03:47 PM Time: 15:32 Patient comfortable and pain free: Yes ejohnson Complications Complication None Hemodynamics Pressures Site Systolic/A Wave Diastolic/V Wave Mean AO 88 69 79 AO 87 73 81 LV 107 8 9 LV 85 10 17 AO 101 69 85 AO 133 103 118 Post Procedure Information Blood Pressure: 166/75 mmHg Rhythm: NSR Post procedural instructions were given Closure Device Time Device Success/Fail 02/16/2017 3:41:00 PM Mechanical Compression Successful Site Checks Time Location Status Staff Sheath In? Note 03:44 PM Rt Wrist No bleeding/hematoma Madeleine Dominique RT (R) Pulses Time Site Pre-Procedure Post-Procedure Note 02/16/2017 11:08:00 AM Bilateral DP \\T\\ PT 2+ 02/16/2017 11:08:00 AM Bilateral radial 2+ 3:43:00 PM Rt Radial 1+ Updated by Pat Olivier RN on 02/16/2017 3:51:01 PM Pat Olivier RN electronically signed on 02/16/2017 3:52:03 PM with status of Final
[2017-02-16] MEDS ORDERED: *HR* Morphine 2 MG/ML SYRINGE IVP ONE (16:05)
[2017-02-16] MEDS: Nitroglycerin 0.4 MG TAB.SUBL SL ONE ×5 (16:27→16:50)
[2017-02-16] MEDS ORDERED: *HR* LORazepam 2 MG/ML VIAL IVP ONE (16:39)
[2017-02-16] MEDS: Ondansetron 4 MG/2 ML VIAL IVP PRN (16:59)
[2017-02-16] MEDS ORDERED: *HR* Promethazine 25 MG/ML VIAL IVP ONE (17:00)
[2017-02-16] MEDS ORDERED: *HR* Midazolam HCl 5 MG/5 ML VIAL IVP ONE (17:09)
[2017-02-16] MEDS ORDERED: *HR* FentaNYL (PF) 250 MCG/5 ML VIAL ONE (17:09)
[2017-02-16] MEDS ORDERED: Heparin 1,000 UNITS/500 mL NS 500 ML ONE (17:09)
--- NOTE | 2017-02-16 17:34 | Pre-Sedation Evaluation ---
Pre-sedation evaluation - Pre-sedation checklist Date of procedure: 02/16/17 Procedure: [facility] Recent Vitals: Last Vital Signs Temp 97.5 F L 02/16/17 17:14 Pulse 69 02/16/17 17:14 Resp 18 02/16/17 17:14 BP 137/88 02/16/17 17:14 Pulse Ox 97 02/16/17 17:14 H&P (including ROS) documented in medical record: Yes Previous reaction to sedatives/anesthetics: No Dietary Status: NPO after Midnight Airway Assessment: Patient can open mouth completely, TMJ function normal ASA Classification *see protocol: CLASS II-Mild systemic disease, E-EMERGENCY- Add to any of the above to indicate emergent Plan of Care: Pt appropriate candidate for procedure/moderate/conscious sedation , Risks/benefits of procedure/sedation discussed w/ patient/family
[2017-02-16] MEDS ORDERED: *HR* Ticagrelor 90 MG TABLET ONE (17:42)
[2017-02-16] MEDS ORDERED: 0.9 % Sodium Chloride 250 ML ONE (17:43)
[2017-02-16] MEDS ORDERED: DOPamine Premix 0 MG/0 ML BAG ONE (17:50)
--- NOTE | 2017-02-16 18:08 | Electrocardiograph Report ---
[address] [place], [place] [address] Test Date: 2017-02-15 Pat Name: [facility] Department: 102 Room: 3B37 Gender: M Consumer Marketing Analyst: Fox : 1975 Requested By: Jesse Jesus Order Number: [id number] Reading MD: Citlaly Farrell Measurements Intervals [place] Rate: 66 P: 8 WA: 117 QRS: 30 QRSD: 89 T: 35 QT: 382 QTc: 396 Interpretive Statements SINUS RHYTHM Electronically Signed On 02-16-2017 18:06:19 EDT by Citlaly Farrell
--- NOTE | 2017-02-16 19:22 | Invasive Diagnostic Lab Proc ---
Name: Stephon Rodriguez Date of Study: 02/16/2017 Date: 1975 Ht: 69.0in Medical Record#: [id number] Age: 42 Wt: 185.00lb Gender: Male BSA: 2. Order #: [id number] BMI: 27.32 Physicians Procedure Physician: Shankar Contreras MD, [facility] Referring MD: Referring MD: Staff Name Position Time In Bryan Del Angel RN Monitor 05:36 PM Pat Olivier RN Major Account Manager 05:36 PM Stephy Chris RT Scrub 05:36 PM Indications Indication STEMI Procedures Performed Procedure L HRT ARTERY/VENTRICLE ANGIO PRQ CARD REVASC MN 1 VSL IV Doppler BLD Flow 1st Vessel Pre-Procedure Checklist Informed consent is complete signed and on chart. H\\T\\P is on chart. ID band is on and ID verified with patient. Patient NPO for procedure The procedure was described for the patient and questions were answered. Blood Pressure: 144/96 ECG is on chart. Rhythm: NSR Plan of Care Patient will tolerate the procedure without complications. Adequate level of comfort will be maintained. Hemodynamics will remain stable Patient will recover from procedure without complications. Respiratory function will be maintained. Cardiac rhythm will remain stable. Patient temperature will be maintained. Patient and/or family have verbalized understanding of the procedure. Patient Education Chief Complaint/Reason for Test: Cardiac Cath Developmental Category: Adult (18-64 years) Developmentally Appropriate for Age: Yes Learning Barriers: None Education Needs: Plan of Care Education Method: Verbal Information Taught: Cardiac Cath Educational Evaluation: Able to repeat information Intravenous Access Time IV Size Location DC'd Fluid/Drip Rate Units RN 05:38 PM 20g 1 11/30" Patent On Arrival Lt Hand 0.9NaCl 25 ml/hr Bryan Del Angel RN Allergies No Known Allergies Vital Signs Time BP (mmHg) HR (bpm) O2 Sat. RR (bpm) LOC 05:37 PM / % 5 = Fully awake and oriented or at pre-proc level 05:51 PM / % 5 = Fully awake and oriented or at pre-proc level 05:52 PM / % 4 = Oriented but drowsy 06:07 PM / % 4 = Oriented but drowsy 06:22 PM / % 4 = Oriented but drowsy 05:36 PM 144 / 96 66 100 % 17 05:41 PM 140 / 88 79 98 % 18 05:46 PM 114 / 67 83 98 % 13 05:48 PM 114 / 65 56 97 % 33 05:49 PM 99 / 63 109 97 % 18 05:51 PM 108 / 77 104 96 % 20 05:56 PM 112 / 78 80 96 % 27 06:01 PM 101 / 79 83 97 % 16 06:06 PM 110 / 76 87 97 % 18 06:11 PM 117 / 73 85 97 % 17 06:16 PM 123 / 81 75 98 % 18 06:21 PM 126 / 77 79 99 % 16 06:26 PM 129 / 87 89 99 % 18 06:31 PM 115 / 85 95 98 % 18 06:36 PM 127 / 87 75 99 % 17 06:41 PM 138 / 86 76 99 % 10 06:46 PM 126 / 79 81 98 % 22 06:37 PM / % 4 = Oriented but drowsy Procedural Medications Time Medication Dose Units Method Given By 05:37 PM Oxygen 2 L/min nasal cannula Pat Olivier RN 05:37 PM Lidocaine 2% 20 ml Subcutaneous Shankar Contreras MD, FACC 05:42 PM Reopro Bolus: 10.5 ml Intracoronary Shankar Contreras MD 05:42 PM Heparin 4000 units Intravenous Pat Olivier RN 05:37 PM Versed 2 mg Intravenous Pat Olivier RN 05:37 PM Fentanyl 50 mcg Intravenous Pat Olivier RN 06:04 PM Heparin 2000 units Intravenous Pat Olivier RN 05:50 PM Reopro 9mg/250ml D5W: 17 ml Intravenous Pat Olivier RN 06:26 PM Nitroglycerin 100 mcg Intracoronary Shankar Contreras MD 06:28 PM Nitroglycerin 100 mcg Intracoronary Shankar Contreras MD 06:41 PM Heparin 2000 units Intravenous Pat Olivier RN 06:43 PM Nitroglycerin 100 mcg Intracoronary Shankar Contreras MD 06:48 PM Brilinta 180 mg Orally - crushed Pat Olivier RN ASA Classification: CLASS II- Mild systemic disease (i.e. well-controlled diabetes, hypertension, asthma, cigarette smoking) Emergent Procedure: ASA score is assumed Makenna Score Preprocedure Postprocedure Activity 2- Moves 4 extremities sustained head lift Activity Circulation 2- SBP +/= 20 points of pre-anesthetic level Circulation Consciousness 2- Awake and alert oriented x 3 Consciousness O2 Saturation 2- Able to maintain O2 satruation of 92% on room air O2 Saturation Respiratory 2- Able to deep breathe and cough well Respiratory Total Score 10 Total Score Contrast Agent: Isovue Diagnostic Contrast: 105 ml Total Contrast: 105 ml Fluoro Dose: 1278 mGy Activated Clotting Time Time Seconds to Clot 06:03 PM 277 06:40 PM 279 Procedure Log Time Note Enter By 05:28 PM CathStat 05:35 PM Case Start 05:36 PM Vitals capture started with the following parameters, Patient=Adult, Interval=5 min, Initial Jcotujye=207 mmHg, Deflation Rate=5 mmHg, Cuff placed on Left Arm 05:36 PM Pt arrived to labor employment associate 2 at 17:36 csmith 05:36 PM Bryan Del Angel RN Position: Monitor Time in: 17:36 csmith 05:36 PM Pat Olivier RN Position: Major Account Manager Time in: 17:36 csmith 05:36 PM Stephy Chris Position: Scrub Time in: 17:36 csmith 05:36 PM Patient charges- Angio tray pack, Navilyst 3mm J, Pulse Oximetry and ACIST tubing and transducer csmith 05:36 PM HR=66 bpm, QXYU=574/96 mmhg, KlJ8=196.0 %, Resp=17 B/min, Comment=sr with st elevation 05:36 PM Hair removed from procedure site in procedure lab using clippers. Right groin prepped with Chloraprep by Bryan Del Angel RN, safety strap applied then patient was draped. Skin intact. csmith 05:36 PM Physician arrived 17:36 csmith 05:36 PM ASA Class CLASS II- Mild systemic disease (i.e. well-controlled diabetes, hypertension, asthma, cigarette smoking) csmith 05:36 PM Meet and greet completed csmith 05:36 PM Sign in performed according to hospital policy. csmith 05:36 PM Procedure start 17:36 csmith 05:37 PM Time: 17:37 Oxygen on at 2 L/min per nasal cannula by Pat Olivier RN [facility] 05:37 PM Time: 17:37 Patient comfortable and pain free: Yes csmith 05:37 PM Time: 17:37LOC: 5 = Fully awake and oriented or at pre-proc level csmith 05:37 PM Time out performed according to hospital policy [facility] 05:37 PM Time: 17:37 Versed 2 mg Intravenous Given by Pat Olivier RN [facility] 05:37 PM Pressure channel 1 zero failed. 05:37 PM Time: 17:37 Fentanyl 50 mcg Intravenous Given by Pat Olivier RN csmith 05:38 PM Pressure channel 1 zeroed. 05:38 PM Time: 17:37 20 ml Lidocaine 2% to right groin Subcutaneous Given by Shankar Contreras MD, [facility] csmith 05:39 PM fluids wide open csmith 05:39 PM Access obtained by percutaneous puncture. 6Fr 10cm Terumo [place] sheath placed in right Femoral artery. [id number] csmith 05:39 PM 6Fr JR 4 Cordis guide catheter was used to cannulate the PCI vessel successfully. reused? No csmith 05:40 PM RCA angiography performed in [place] csmith 05:41 PM Lesion found in Mid RCA. Pre Stenosis: 100 Pre MAX Flow: 0: No Flow/No perfusion csmith 05:41 PM Recorded Pressure: Ao, HR=71, Condition=Condition 1 (Aorta) Ao 126/88/106 05:41 PM Recorded ECG: HR=76 Condition=Condition 1 05:41 PM HR=79 bpm, ICNX=401/88 mmhg, SpO2=98.0 %, Resp=18 B/min, Comment=sr with st elevation 05:42 PM .014 PT Graphix 182cm guide wire across target lesion- successful. reused? No csmith 05:42 PM Inflation device was opened. csmith 05:42 PM Time: 17:42 Reopro Bolus: 10.5 ml Intracoronary Given by Shankar Contreras MD push csmith 05:42 PM Balloon inflated @ 6 melissa for 10 seconds csmith 05:42 PM Time: 17:42 Heparin 4000 units Intravenous Given by Pat Olivier RN IVP csmith 05:43 PM 3.0 mm x 20 mm Emerge Monorail balloon across target lesion- successful. reused? No csmith 05:43 PM Balloon inflated @ 10 melissa for 10 seconds csmith 05:44 PM Balloon inflated @ 14 melissa for 10 seconds csmith 05:45 PM Recorded Pressure: Ao, HR=80, Condition=Condition 1 (Aorta) Ao 119/91/106 05:45 PM Balloon inflated @ 6 melissa for 8 seconds csmith 05:46 PM Balloon inflated @ 6 melissa for 5 seconds csmith 05:46 PM Balloon inflated @ 6 melissa for 6 seconds csmith 05:46 PM HR=83 bpm, CCWG=393/67 mmhg, SpO2=98.0 %, Resp=13 B/min, Comment=sr with st elevation 05:47 PM reperfusion dysrhythmias noted csmith 05:47 PM NIBP STAT measurement started. 05:48 PM HR=56 bpm, RYFO=040/65 mmhg, SpO2=97.0 %, Resp=33 B/min, Comment=ectopy with elevation 05:48 PM Balloon inflated @ 14 melissa for 16 seconds csmith 05:49 PM Balloon inflated @ 14 melissa for 10 seconds csmith 05:49 PM NIBP STAT measurement started. 05:49 PM XW=957 bpm, NIBP=99/63 mmhg, SpO2=97.0 %, Resp=18 B/min, Comment=ectopy 05:50 PM Time: 17:50 Reopro 9mg/250ml D5W: 17 ml Intravenous Given by Pat Olivier RN Gordon pump csmith 05:51 PM RB=020 bpm, MBXR=203/77 mmhg, SpO2=96.0 %, Resp=20 B/min, Comment=ectopy 05:51 PM balloon removed csmith 05:51 PM preparing for IVUS csmith 05:51 PM Time: 17:51 Patient comfortable and pain free: Yes csmith 05:52 PM Time: 17:51LOC: 5 = Fully awake and oriented or at pre-proc level csmith 05:54 PM 3.6Fr/40mHz Fleck [employer] Opti Cross IVUS catheter was inserted into guide catheter and advanced to lesion. IVUS study was done and the catheter was removed. csmith 05:56 PM HR=80 bpm, PBKT=733/78 mmhg, SpO2=96.0 %, Resp=27 B/min, Comment=ectopy 05:57 PM IVUS catheter removed intact csmith 05:57 PM 3.5 mm x 20 mm Emerge Monorail balloon across target lesion- successful. reused? No csmith 05:58 PM Balloon inflated @ 12 melissa for 10 seconds csmith 05:59 PM Balloon inflated @ 14 melissa for 10 seconds csmith 05:59 PM act drawn and running csmith 06:00 PM Balloon inflated @ 12 melissa for 10 seconds csmith 06:00 PM Balloon inflated @ 12 melissa for 9 seconds csmith 06:01 PM HR=83 bpm, AMIF=886/79 mmhg, SpO2=97.0 %, Resp=16 B/min, Comment=ectopy 06:02 PM Balloon catheter removed intact. csmith 06:03 PM 4.0mm x 38mm Synergy bioabsorbable stent across target lesion- successful Lot #[id number] csmith 06:03 PM At 18:03 the ACT was 277 seconds. csmith 06:04 PM Time: 18:04 Heparin 2000 units Intravenous Given by Pat Olivier RN IVP csmith 06:05 PM Stent deployed @ 16 melissa for 12 seconds csmith 06:06 PM HR=87 bpm, FMAN=761/76 mmhg, SpO2=97.0 %, Resp=18 B/min, Comment=ectopy 06:06 PM Time: 17:51 Patient comfortable and pain free: Yes csmith 06:07 PM Time: 17:52LOC: 4 = Oriented but drowsy csmith 06:07 PM Stent delivery system removed intact. csmith 06:07 PM 3.6Fr/40mHz Elasticsearch Cross IVUS catheter was inserted into guide catheter and advanced to lesion. IVUS study was done and the catheter was removed. csmith 06:07 PM Recorded Pressure: Ao, HR=77, Condition=Condition 1 (Aorta) Ao 98/71/85 06:10 PM IVUS catheter removed intact csmith 06:11 PM HR=85 bpm, NBJA=147/73 mmhg, SpO2=97.0 %, Resp=17 B/min, Comment=sr with st elevation 06:14 PM Lesion found in Distal RCA. Pre Stenosis: 100 Pre MAX Flow: 0: No Flow/No perfusion csmith 06:15 PM .014 Prowater 180cm guide wire across target lesion- successful. reused? No csmith 06:16 PM 4.0mm x 24mm Synergy bioabsorbable stent across target lesion- successful Lot #[id number] csmith 06:16 PM HR=75 bpm, XOLX=736/81 mmhg, SpO2=98.0 %, Resp=18 B/min, Comment=sr with st elevation 06:17 PM Prowater removed csmith 06:17 PM synergy removed undeployed and intact csmith 06:18 PM 4.5 mm x 20mm Empira NC balloon across target lesion- successful. reused? No csmith 06:19 PM Balloon inflated @ 18 melissa for 15 seconds csmith 06:20 PM Balloon inflated @ 18 melissa for 10 seconds csmith 06:20 PM Balloon inflated @ 18 melissa for 7 seconds csmith 06:21 PM Balloon inflated @ 18 melissa for 10 seconds csmith 06:21 PM HR=79 bpm, SRTR=486/77 mmhg, SpO2=99.0 %, Resp=16 B/min, Comment=sr with st elevation 06:21 PM Balloon inflated @ 14 melissa for 10 seconds csmith 06:22 PM Time: 18:06 Patient comfortable and pain free: Yes csmith 06:22 PM Time: 18:07LOC: 4 = Oriented but drowsy csmith 06: PM Balloon catheter removed intact. csmith 06: PM 4.0*24 synergy stent reinserted into RCA csmith 06:25 PM Stent deployed @ 16 melissa for 12 seconds csmith 06: PM Stent balloon reinflated @ 16 melissa for 9 seconds csmith 06: PM Time: 18:26 Nitroglycerin 100 mcg Intracoronary Given by Shankar Contreras MD csmith 06: PM HR=89 bpm, RGMD=639/87 mmhg, SpO2=99.0 %, Resp=18 B/min, Comment=sr with st elevation 06: PM Stent delivery system removed intact. csmith 06: PM Time: 18:28 Nitroglycerin 100 mcg Intracoronary Given by Shankar Contreras MD csmith 06:29 PM 3.6Fr/40mHz [employer] Opti Cross IVUS catheter was inserted into guide catheter and advanced to lesion. IVUS study was done and the catheter was removed. csmith 06:31 PM IVUS catheter removed intact csmith 06:31 PM HR=95 bpm, MWLF=908/85 mmhg, SpO2=98.0 %, Resp=18 B/min, Comment=sr with st elevation 06:35 PM 4.5*20 nc balloon reinserted into RCA csmith 06:35 PM Balloon inflated @ 12 melissa for 7 seconds csmith 06:35 PM Balloon inflated @ 14 melissa for 10 seconds csmith 06:36 PM balloon catheter removed intact csmith 06:36 PM HR=75 bpm, BKVO=368/87 mmhg, SpO2=99.0 %, Resp=17 B/min, Comment=sr with st elevation 06:36 PM [facility] [place] of need for 2N bed csmith 06:37 PM Time: 18:22 Patient comfortable and pain free: Yes csmith 06:37 PM Time: 18:22LOC: 4 = Oriented but drowsy csmith 06:37 PM 5.0 mm x 20mm Empira NC balloon across target lesion- successful. reused? No csmith 06:37 PM act drawn and running csmith 06:40 PM balloon removed csmith 06:40 PM 5.0 mm x 15mm NC Trek Rx balloon across target lesion- successful. reused? No csmith 06:40 PM At 18:40 the ACT was 279 seconds. csmith 06:41 PM Time: 18:41 Heparin 2000 units Intravenous Given by Pat Olivier RN IVP csmith 06:41 PM Balloon inflated @ 12 melissa for 8 seconds csmith 06:41 PM HR=76 bpm, QFKC=189/86 mmhg, SpO2=99.0 %, Resp=10 B/min, Comment=sr with st depression 06:42 PM Balloon inflated @ 16 melissa for 16 seconds csmith 06:42 PM Balloon inflated @ 12 melissa for 8 seconds csmith 06:43 PM Balloon catheter removed intact. csmith 06:43 PM Time: 18:43 Nitroglycerin 100 mcg Intracoronary Given by Shankar Contreras MD csmith 06:44 PM 5*15 nc trek balloon reinserted csmith 06:45 PM Balloon inflated @ 12 melissa for 12 seconds csmith 06:46 PM wire and balloon removed intact csmith 06:46 PM HR=81 bpm, FLRW=897/79 mmhg, SpO2=98.0 %, Resp=22 B/min, Comment=sr with st depression 06:46 PM catheter removed csmith 06:47 PM Recorded Pressure: Ao, HR=81, Condition=Condition 1 (Aorta) Ao 125/79/96 06:48 PM Time: 18:48 Brilinta 180 mg Orally - crushed [facility] PM Time: 18:37 Patient comfortable and pain free: Yes csmith 06:52 PM Time: 18:37LOC: 4 = Oriented but drowsy [facility] 06:58 PM Procedure completed at 18:52 [facility] PM Sign out completed: Radiation Dose 1278 mGy Fluoro Time: 16.6 Isovue 370 - 200ml contrast 105 ml given by [facility] Cont[facility]ras [facility], [facility] Complications: NoneCardiac Rehab Consult needed: YesConfirmed administered medications: Yes [facility] 06:58 PM Isovue 370 - 200ml,1 Bottle(s) used. csmith 06:58 PM Sheath left in place to be pulled on floor/holding areaV+Pad csmith 06:58 PM Post ECG NSR csmith 06:58 PM Post Blood Pressure 133/99 csmith 07:00 PM 19:00 Post Pulses Bilateral DP \\T\\ PT 1+ csmith 07:01 PM Information taught PCI csmith 07:01 PM Education needs Responsibilities of Patient in Care csmith 07:01 PM Learning barriers :None csmith 07:01 PM Education Methods Verbal csmith 07:01 PM Education evaluation Able to repeat information csmith 07:01 PM Site status No bleeding/hematoma - Rt Groin as reported by Stephy Chris RT at 19:01 csmith 07:01 PM Opsite applied csmith 07:01 PM Plavix, Effient or Brilinta given Yes csmith 07:01 PM Delay to floor Bed availability (cleaning bed) csmith 07:01 PM Family placed in consult room. csmith 07:15 PM Report given to Andre JI Pt taken to 2N Room #13. 19:14 csmith Complications Complication None Hemodynamics Pressures Site Systolic/A Wave Diastolic/V Wave Mean AO 126 88 106 AO 119 91 106 AO 98 71 85 AO 125 79 96 Post Procedure Information Blood Pressure: 133/99 mmHg Rhythm: NSR Post procedural instructions were given Closure Device Time Device Success/Fail Manual Compression Site Checks Time Location Status Staff Sheath In? Note 06:51 PM Rt Groin No bleeding/ No Hematoma Stephy Chris RT 07:01 PM Rt Groin No bleeding/hematoma Stephy Chris RT Pulses Time Site Pre-Procedure Post-Procedure Note 02/16/2017 5:38:00 PM Bilateral DP \\T\\ PT 2+ 02/16/2017 5:38:00 PM Rt Radial 1+ 7:00:00 PM Bilateral DP \\T\\ PT 1+ Updated by Bryan Del Angel RN on 02/16/2017 7:15:29 PM electronically signed on 02/16/2017 7:15:56 PM with status of Final
[2017-02-16] MEDS ORDERED: Abciximab 9 MG in 0.9 % Sodium Chloride 250 ML IVC SCH (20:15)
[2017-02-16] MEDS ORDERED: *HR* Atropine Sulfate 1 MG/10 ML SYRINGE ONE (21:27)
[2017-02-17] MEDS: Ondansetron 4 MG/2 ML VIAL IVP PRN (04:53)
[2017-02-17 05:34] LABS: BUN/Creatinine Ratio 8 (6-26); Blood Urea Nitrogen 6 mg/dL (8-26); Calcium 8.6 mg/dL (8.6-10.8); Carbon Dioxide 17 mEq/L (19-29); Chloride 108 mEq/L (98-109); Glucose 112 mg/dL (70-99); Osmolality,Calculated 280 (280-300); Potassium 3.9 mEq/L (3.5-4.5); Sodium 136 mEq/L (136-145); eGFR For African Americans > 60 (> 60); eGFR For Non-African Americans > 60 (> 60)
[2017-02-17] MEDS: Pantoprazole 40 MG VIAL IVP SCH (05:56)
[2017-02-17] MEDS ORDERED: *HR* Ticagrelor 90 MG TABLET PO SCH (07:00)
[2017-02-17] MEDS: Aspirin 81 MG TAB.CHEW PO SCH (08:09)
--- NOTE | 2017-02-17 08:49 | Invasive Diagnostic Lab ---
Name: Stephon Rodriguez Date of Study: 02/16/2017 Date: 1975 Ht: 175.3 cm /69.0 in Medical Record#: [id number] Age: 42 Wt: 83.9 kg / 185.00 lb Account/Order#: [id number] Gender: Male BSA: 2. Order #: [id number] Fluoro Dose: BMI: 27.32 Procedure Physician: Shankar Contreras MD, [facility] Referring MD: Referring MD: Procedures Performed: PCI of Acute OH IV Doppler BLD Flow 1st Vessel Indications: Inferior STEMI Impressions: There is severe one vessel coronary artery disease - RCA thrombosis at distal portion of proximal stent. IVUS shows adequate stent apposition. Suspect clopidogrel poor/nonresponder Patient had successful PTCA/Drug-Eluting Stent placement in the mid and distal RCA. IVUS was used multiple times for postdilation. Recommendations: Optimal medical therapy of patient's disease. Aggressive risk factor modification. Brilinta or Effient as DAPT x 1 year uninterrupted History/Risk Factors: STent to RCA 01/19/17 Hypertension Current/Recent Smoker Date: 02/16/2017 Procedure Access obtained in the right Femoral artery by percutaneous puncture Patient had successful PTCA/Drug-Eluting Stent placement in the mid and distal RCA. A intravascular ultrasound catheter was fully inserted through the sheath into the distal part of the vessel. Image recording was initiated and coronary ultrasound images were acquired during slow pullback. Closure Device: Manual Compression Hemodynamics: Pressures Site Systolic/ A Wave Diastolic/ V Wave End Diastolic/ Mean HR AO 126 88 106 71 AO 119 91 106 80 AO 98 71 85 77 AO 125 79 96 81 Coronary Dominance: right Lesion Findings/Interventions * Right Coronary Artery There is a 35 mm long, 100% stenosis in the Mid RCA. The lesion has a MAX flow of 0 and has thrombus present. An intervention was performed on the Mid RCA with a final stenosis of 0%. There were no lesion complications. The final MAX flow was 3. There is a 20 mm long, 100% stenosis in the Distal RCA. The lesion has a MAX flow of 0 and has thrombus present. An intervention was performed on the Distal RCA with a final stenosis of 0%. There were no lesion complications. The final MAX flow was 3. Interventional Device(s) Vessel Segment Type Name Diameter (mm) Length (mm) Mid RCA balloon Emerge Monorail 3.5 20 Mid RCA bioabsorbable stent Synergy 4 38 Mid RCA [place] [employer] Opti Cross Mid RCA balloon Emerge Monorail 3 20 Distal RCA bioabsorbable stent Synergy 4 24 Distal RCA balloon Empira NC 4.5 20 Updated by Bryan Del Angel RN on 02/16/2017 6:52:14 PM Shankar Contreras MD, FACC electronically signed on 02/17/2017 8:44:00 AM with status of Final
--- NOTE | 2017-02-17 09:12 | Invasive Diagnostic Lab ---
Name: Stephon Rodriguez Date of Study: 02/16/2017 Date: 1975 Ht: 175.0 cm /68.9 in Medical Record#: [id number] Age: 42 Wt: 84.1 kg / 185.41 lb Account/Order#: [id number] Gender: Male BSA: 2. Order #: [id number] Fluoro Dose: 320 mGy BMI: 27.46 Procedure Physician: Shankar Contreras MD, [facility] Referring MD: Referring MD: Procedures Performed: LEFT HEART CATH Stent w/ PTCA Single Major Vessel Indications: Non-Stemi Impressions: There is severe 1 vessel CAD The left ventricle EF 50% Patient had successful PTCA/Drug-Eluting Stent placement in the proximal RCA. Recommendations: Optimal medical therapy of patient's disease. Aggressive risk factor modification. History/Risk Factors: NSTEMI Hypertension Dyslipidemia Current/Recent Smoker Family History of CAD Procedure Access obtained in the right Radial artery by percutaneous puncture Patient had successful PTCA/Drug-Eluting Stent placement in the proximal RCA. Complications: None Contrast: Isovue 77ml Hemodynamics: Pressures Site Systolic/ A Wave Diastolic/ V Wave End Diastolic/ Mean HR AO 88 69 79 69 AO 87 73 81 77 LV 107 8 9 69 LV 85 10 17 71 AO 101 69 85 70 AO 133 103 118 67 LV Ventriculography Ejection Method: LV Gram Ejection Fraction: 50% Wall Motion: HIGHTOWER Anterobasal Normal Anterolateral Normal Apical: Normal Inferoapical Mild Hypokinesis Inferobasal Mild Hypokinesis Coronary Dominance: right Lesion Findings/Interventions * Left Main Coronary Artery The LMCA is angiographically free of disease. * Left Anterior Descending The LAD has proximal 20% stenosis and mid 40% stenosis The 1st Diagonal has proximal 20% stenosis * Circumflex The Circumflex is angiographically free of disease. The 1st Marginal is angiographically free of disease. * Right Coronary Artery There is a 16 mm long, 90% stenosis in the Proximal RCA. The lesion has a MAX flow of 3 and has no thrombus present. An intervention was performed on the Proximal RCA with a final stenosis of 0%. There were no lesion complications. The final MAX flow was 3. Interventional Device(s) Vessel Segment Type Name Diameter (mm) Length (mm) Proximal RCA balloon Emerge Monorail 2.5 12 Proximal RCA drug-eluting stent Synergy 4 16 Proximal RCA balloon NC Emerge 4 12 Updated by Pat Olivier RN on 02/16/2017 3:49:17 PM Shankar Contreras MD, FACC electronically signed on 02/17/2017 9:07:20 AM with status of Final
--- NOTE | 2017-02-17 10:55 | Cardiology Progress Note ---
Date of Encounter: 02/17/17 Time of Encounter: 09:30 Assessment and Plan (1) NSTEMI (non-ST elevated myocardial infarction) Current Visit: Yes Status: Acute 02/17/17 Patient had LHC per Dr. Contreras which revealed 90% stenosis to proximal RCA with stent placed and reperfusion achieved Patient returned to room and complained of severe chest pain, EKG revealed ST segment elevation Repeat LHC per Dr. Contreras revealed 100% stenosis to mid RCA and 100% stenosis to distal RCA. Stents were placed to each lesion and reperfusion was achieved. ECHO 02/16/17 LVEF 55%, mild LV diastolic dysfunction, no pulmonary HTN 24 h telemetry revealed avg HR 80, min HR 65, max HR 175 with 13 beats non- sustained VT, also telemetry revealed 30 beat idioventricular rhythm Continue ASA, Lipitor, Brilinta Will add Metoprolol ER 25m Patient may be discharged today at 17:00 follow up with power shovel mechanic in 7 days 02/16/17 Patient's troponin trending up 0.25, 0.88 EKG is NSR without T wave abnormality, unchanged from previous Currently on heparin ggt, ASA 81mg, Lipitor 40mg ECHO pending MAX Score 3 Given patient's significant risk factors, angina, and rising troponins will proceed with LHC for small NSTEMI today Plavix 600mg now Continue ASA, Lipitor Keep patient NPO We will follow up with further recommendations following LHC (2) Elevated troponin Current Visit: Yes Status: Acute (3) Chest pain Current Visit: Yes Status: Resolved Qualifiers: Chest pain type: chest pain due to myocardial ischemia Qualified Code(s): I20.9 - Angina pectoris, unspecified (4) HLD (hyperlipidemia) Current Visit: Yes Status: Chronic LDL 93 Continue Lipitor 40mg Qualifiers: Hyperlipidemia type: unspecified Qualified Code(s): E78.5 - Hyperlipidemia , unspecified (5) Tobacco abuse Current Visit: Yes Status: Chronic Nicotine patch prn Patient states that he and his are quitting smoking starting today May require nicotine patches at discharge Discussion w patient/family: The assessment and plan as outlined above was discussed with the patient and/or family members who expressed understanding and agreement. All questions were answered. Thank you for involving us in the care of your patient. Please call with any questions. Subjective Principal diagnosis: NSTEMI Interval history: Patient underwent left heart cath per Dr. Contreras yesterday afternoon with 2 stents placed to mid and distal RCA. Patient doing well this morning. Denies chest pain at this time. Denies pain to catheter insertion site. Objective Vital Signs, Last 4 Hours Temp Pulse Resp BP Pulse Ox 02/17/17 07:17 98.9 F 75 18 134/95 97 General: Conversant, No Apparent Distress HEENT: Atraumatic, Normocephaly, Mucus Membranes Moist Neck: No JVD, Normal carotid pulses Cardiac: Reg Rate and Rhythm, Normal S1 and S2, No Murmur Lungs: Normal Breath Sounds, No Wheeze, Rales, Rhonchi Neuro: Alert and responsive, No focal deficits noted Abdomen: Soft, Non-Tender Skin: No rashes noted on visualized skin Musculoskeletal: No Chest Wall Tenderness Extremities: No Clubbing, No Cyanosis, No Edema, Normal Pulses Other: Right groin catheter access site with minimal amount ecchymosis, no hematoma, redness or warmth. Results 02/16/17 04:06 02/17/17 05:06 Lab Results 02/16/17 02/17/17 11:30 05:06 APTT 66.9 H Sodium 136 Potassium 3.9 Chloride 108 Carbon Dioxide 17 L BUN 6 L Creatinine 0.76 Glucose 112 H Calcium 8.6 - Imaging and Cardiology Cardiac cath: report reviewed - EKG Interpretation EKG results cardiology: personally reviewed, normal ECG, sinus rhythm Consult Discharge Plan - Plan Instructions: Myocardial Infarction (DC), Left Heart Catheterization (DC) Referrals: Hayden Arita DO [Resident] - 05/12/17 1:30 pm (The office will mail you a new patient packet. Please arrive 15 mins early to your first appointment and bring any current medications you are taking. Please bring a copy of your insurance card and photo ID. If you need to cancel for any reason please do so 24 hours in advance.)
[2017-02-17 11:07] VITALS: BP 142/84
[2017-02-17] MEDS ORDERED: Metoprolol XL (24 HR) Succ 25 MG TAB.ER.24H PO SCH (11:45)
[2017-02-17] MEDS: Acetaminophen 325 MG TABLET PO PRN (13:51)
--- NOTE | 2017-02-17 15:30 | Discharge Summary ---
Date of Encounter: 02/19/17 Time of Encounter: 15:35 - Discharge Medications Prescriptions: Aspirin 81 mg PO DAILY #30 tab.chew Atorvastatin [Lipitor] 40 mg PO HS #30 tablet Metoprolol XL (24 HR) Succ [Toprol Xl] 25 mg PO DAILY #30 tab.er.24h Nicotine Patch [Nicoderm] 1 each TD DAILY #30 patch.td24 Ticagrelor [Brilinta] 90 mg PO Q12H #60 tablet Home Medications: Aspirin 81 mg PO DAILY #30 tab.chew 02/17/17 [Rx] Atorvastatin [Lipitor] 40 mg PO HS #30 tablet 02/17/17 [Rx] Metoprolol XL (24 HR) Succ [Toprol Xl] 25 mg PO DAILY #30 tab.er.24h 02/17/17 [ Rx] Nicotine Patch [Nicoderm] 1 each TD DAILY #30 patch.td24 02/17/17 [Rx] Ticagrelor [Brilinta] 90 mg PO Q12H #60 tablet 02/17/17 [Rx] Allergies/Adverse Reactions: Allergies No Known Allergies Allergy (Verified 02/15/17 20:27) Procedures/tests Complete & Pending: Procedures Performed prior 72 hours Category Date Time Status CL Cardiac Catheterization [CL] Routine Load Dispatcher 02/16/17 10:50 Completed CL Cardiac Catheterization [CL] Routine Load Dispatcher 02/16/17 17:05 Completed ECG 12 lead ECG [ECG] AM 0600 Y 02/17/17 06:00 Ordered ECG 12 lead ECG [ECG] Routine Y 02/16/17 16:31 Completed ECG 12 lead ECG [ECG] Routine Y 02/16/17 16:50 Completed EV echocardiogram Routine Y 02/16/17 04:51 Completed Date of admission: 02/16/17 02:51 Primary care physician: PCP NO Consults: 02/17/17 08:20 Consult to Cardiac Rehabilitation-Phase1 [CONS] Routine Comment: Reason for Consult: ACS Call Completed: No Discharging clinician: Chantelle Goldberg - Patient Status Disposition: Home, Self-Care Condition: Good Overall status at discharge: patient is back to baseline - Discharge Instructions Instructions: Aspirin/Codeine (By mouth), Metoprolol (By mouth), Atorvastatin ( By mouth), Ticagrelor (By mouth), Myocardial Infarction (DC), Left Heart Catheterization (DC) Follow Up With: Hayden Arita DO [Resident] - 05/12/17 1:30 pm (The office will mail you a new patient packet. Please arrive 15 mins early to your first appointment and bring any current medications you are taking. Please bring a copy of your insurance card and photo ID. If you need to cancel for any reason please do so 24 hours in advance.) - Diet and Activity Activity: increase activity as tolerated Diet: low fat, low cholesterol Interval History: Mr. Rodriguez is a 42 year old male c/o CP. PMHx smoking, HTN. Pt states that chest pain was a severe sharp midsternal pain that radiated to shoulder and down the left arm. Patient was noticed to have elevated troponins and diagnosed to have an NSTEMI. He underwent LHC which showed proximal RCA occlusion which was revascularised. Following the procedure patient had severe chest pain with ST elevations on the EKG and pt was taken back to the micro lab analyst which showed mid and distal RCA occlusion with stenting. Patient started on aspirin, brilinta, statin and BB on dsicharge. he is also provided nicotine patches. He is recommended to f/u with cardiology in one week. Hospital course: Mr. Rodriguez is a 42 year old male - Time Spent with Patient Total time spent providing and/or coordinating discharge services: Greater than 30 minutes - Constitutional Vitals: Temp Pulse Resp BP Pulse Ox 98.6 F 74 18 142/84 97 02/17/17 11:03 02/17/17 11:03 02/17/17 11:03 02/17/17 11:03 02/17/17 11:03 General appearance: Present: A&O X 3, no acute distress, answers questions appropriately - Head Head exam: Present: atraumatic, normocephalic - Eye Eye exam: Present: PERRL, conjuntiva pink, sclera anicteric Pupils: Present: PERRL - Neck Neck exam general surgery: Present: supple, trachea midline. Absent: lymphadenopathy - Respiratory Respiratory exam: Present: CTAB. Absent: accessory muscle use, rales, rhonchi, wheezes - Cardiovascular Cardiovascular exam: Present: RRR, +S1, +S2. Absent: diastolic murmur, gallop, rubs, systolic murmur - GI/Abdominal GI/Abdominal exam: Present: normal bowel sounds, soft, no peritoneal signs. Absent: distended, tenderness - Extremities Exam Extremities exam: Present: warm, radial pulses palpable and symetrical. Absent : calf tenderness, cyanotic, pedal edema - Neurological Exam Neurological exam: Present: CN II-XII intact, oriented X3, no focal deficits. Absent: pronater drift, facial droop, speech deficit - Skin Skin exam: Present: dry, intact
--- NOTE | 2017-02-17 20:36 | Electrocardiograph Report ---
[address] [place], [place] [address] Test Date: 2017-02-16 Pat Name: [facility] Department: 113 Room: 2N13 Gender: M Numerologist: : 1975 Requested By: Delmer Gordon Order Number: [id number] Reading MD: Shankar Contreras MD Measurements Intervals [place] Rate: 85 P: 75 NH: 160 QRS: 68 QRSD: 109 T: 95 QT: 324 QTc: 366 Interpretive Statements SINUS RHYTHM WITH FREQUENT VENTRICULAR PREMATURE COMPLEXES IN A BIGEMINAL PATTERN MARKED ST ELEVATION, CONSIDER INFERIOR INJURY ACUTE HI Electronically Signed On 02-17-2017 20:34:40 EDT by Shankar Contreras MD
--- NOTE | 2017-02-19 07:31 | Electrocardiograph Report ---
[address] [place] [address] Test Date: 2017-02-16 Pat Name: [facility] Department: 113 Room: 2N13 Gender: M Spinner Open End: : 1975 Requested By: Delmer Gordon Order Number: [id number] Reading MD: Shankar Contreras MD Measurements Intervals [place] Rate: 76 P: 75 UT: 155 QRS: 45 QRSD: 110 T: 91 QT: 399 QTc: 430 Interpretive Statements SINUS RHYTHM WITH SINUS ARRHYTHMIA INFERIOR MYOCARDIAL INFARCTION, POSSIBLY ACUTE ACUTE MD Electronically Signed On 02-19-2017 7:30:10 EDT by Shankar Contreras MD
== END 2017-02-17 17:34 | disposition home or self-care (01) | DRG 174 ==
LOC: EMEROO 20:14 → 2NENU 20:14 → 3BNU 02-16 00:08 → 2NNU 02-16 18:50
PROVIDERS: ADMIT Internal Medicine; ATTEND Internal Medicine

== ENCOUNTER 2017-03-01 18:58 | Inpatient (IN) ==
--- NOTE | 2017-03-01 19:37 | Emergency Department Note ---
Disposition Clinical Impression: NSTEMI (non-ST elevated myocardial infarction) Disposition: Admitted As Inpatient Condition: Good Neck Injury/Pain HPI - General Chief Complaint: ED Neck Pain/Injury Stated Complaint: Neck pain Time Seen by Provider: 03/01/17 19:06 Limitations: no limitations - History of Present Illness HPI Narrative: 42-year-old male history of hypertension, hyperlipidemia, status post stent placement at the end of January 2017 who presents to the ER with chief complaint of neck pain. Patient reports that he was having neck pain that started last night. He states today while he was walking around the grocery store that he continued to have left-sided sharp neck pain that went down into his chest and into his back. He denies any recent trauma. Patient was admitted a few weeks ago and underwent a left heart catheterization with stent placement that thrombosed requiring restenting. He reports that this is not the same pain he had prior to his heart catheterization. He reports chest pain earlier today as well as shortness of breath that resolved prior to arrival. He denies any nausea or vomiting. He denies any dysphasia. No recent illnesses. No other complaints. Pt Subjective Complaint: neck pain Onset (ago): hour(s) Place: home Radiation: left lateral Pain Severity: moderate Quality: sharp Duration: intermittent Improves with: none Worsens with: none Context: unknown Associated symptoms: Denies: fever, swollen glands, difficulty swallowing, nausea, vomiting Treatments prior to arrival: none - Related Data Home Medications Medication Instructions Recorded Confirmed Metoprolol XL (24 HR) Succ [Toprol 50 mg PO DAILY 03/01/17 03/01/17 XL] Previous Rx's Medication Instructions Recorded Aspirin 81 mg PO DAILY #30 tab.chew 02/17/17 Atorvastatin [Lipitor] 40 mg PO HS #30 tablet 02/17/17 Ticagrelor [Brilinta] 90 mg PO Q12H #60 tablet 02/17/17 Allergies Allergy/AdvReac Type Severity Reaction Status Date / Time clopidogrel [From Plavix] AdvReac See Verified 03/01/17 21:55 Comments All systems ED: reviewed and negative except as stated. Constitutional: Denies: fever ENT ED: Denies: throat pain, dysphagia Cardiovascular: Reports: chest pain (now resolved) Respiratory: Reports: dyspnea (now resolved). Denies: cough Gastrointestinal: Denies: abdominal pain, nausea, vomiting Musculoskeletal: Reports: neck pain (left sided ) Neurological: Denies: headache Past Medical History - Past Medical History Attestation: Yes The following information was validated with the patient. Source: patient Medical history: Reports: hyperlipidemia, hypertension, other Surgical history: Reports: angioplasty/stent Psychiatric history: Reports: no psych history - Social History Smoking Status: Current every day smoker Smokeless Tobacco Status: Yes Alcohol use: Reports: none Drug use: Reports: marijuana Physical Exam - General Limitations: no limitations General appearance: alert, in no apparent distress - Head Head exam: atraumatic, normocephalic, normal inspection - Eye Eye exam: Present: normal appearance, EOMI - ENT ENT exam: normal exam - Neck Neck exam: Present: normal inspection, full ROM, other (Patient has tenderness to palpation along the left anterior lateral portion of his neck close to his thyroid.) - Chest Chest inspection: Present: normal inspection, symmetric chest wall rise - Respiratory Respiratory exam: Present: normal lung sounds bilaterally - Cardiovascular Cardiovascular exam: Present: regular rate, normal rhythm, normal heart sounds - Abdominal Exam Abdominal exam: Present: soft, Non-Tender. Absent: tenderness - Extremities Exam Extremities exam: Present: normal inspection, full ROM - Expanded Upper Extremity Exam Shoulder exam: Present: normal inspection, full ROM Arm exam: Present: normal inspection, full ROM Elbow exam: Present: normal inspection, full ROM Forearm/Wrist exam: Present: normal inspection, full ROM Hand exam: Present: normal inspection, full ROM - Expanded Lower Extremity Exam Hip/Pelvis exam: Present: normal inspection, full ROM Upper leg exam: Present: normal inspection, full ROM Knee exam: Present: normal inspection, full ROM Lower leg exam: Present: normal inspection, full ROM Ankle exam: Present: normal inspection, full ROM Foot/toe exam: Present: normal inspection, full ROM - Back Exam Back exam: Present: normal inspection - Neurological Exam Neurological exam: Present: alert - Psychiatric Psychiatric exam: Present: normal affect, normal mood - Skin Skin exam: Present: warm, dry, intact, normal color Course Course Narrative: Patient seen and examined. Vital signs reviewed. We will get an EKG, chest x- ray, lateral soft tissue x-ray as well as labs including troponin. - Reevaluation(s) Reevaluation #1: Discussed results of lab work and imaging with the patient. He is agreeable with staying in the hospital. He denies any recent bleeding. We will start on a heparin drip and admitted to the hospital. - Consultations Consultation #1: I spoke with the on-call personal chef Dr. Farrell. Discussed patient's history EKG and lab findings. They report that the troponin probably should be cleared by now and the patient did benefit from admission for serial troponins. They also recommend to start a heparin drip. We will admit to the hospital service. Vital Signs Temperature 98 F 03/01/17 19:03 Pulse Rate 70 03/01/17 19:03 Respiratory Rate 16 03/01/17 19:03 Blood Pressure 130/73 03/01/17 19:03 O2 Sat by Pulse Oximetry 99 03/01/17 19:03 Temperature 98 F 03/01/17 19:03 Pulse Rate 50 03/01/17 20:19 Respiratory Rate 16 03/01/17 23:34 Blood Pressure 126/76 03/01/17 23:34 O2 Sat by Pulse Oximetry 97 03/01/17 20:19 Oxygen Delivery Oxygen Delivery Room Air Neck Pain - MDM Narrative Medical decision making narrative: 42-year-old male presents to the ER due to neck and chest pain. EKG here shows T-wave inversions in the inferior and lateral leads. His troponin was elevated at 0.13. He is currently chest pain-free. Cardiology was consulted in the emergency Department who recommended to start a heparin drip and admitted to the hospitalist service for serial troponins and further workup. Patient admitted to the hospitalist service - Lab Data Lab results reviewed: Yes I reviewed the patient's lab results. Result diagrams: 03/01/17 20:13 03/01/17 20:13 Lab Results 03/01/17 03/01/17 03/01/17 Range/Units 20:13 20:13 20:13 WBC 7.6 (4.3-11.1) K/mcL RBC 4.38 (4.19-5.50) M/mcL Hgb 12.7 L (12.9-16.9) g/dL Hct 38.1 (37.5-50.1) % MCV 87.0 (83.0-100.0) fL MCH 29.0 (28.0-33.3) pg MCHC 33.3 (31.6-35.5) g/dL RDW 12.2 (11.5-14.5) % Plt Count 112 L (140-400) K/mcL MPV 12.9 H (9.4-12.4) fL Immature Gran % 0.3 (0-4) % Seg Neutrophils % 57.7 % Lymphocytes % 34.0 % Monocytes % 6.1 % Eosinophils % 1.4 % Basophils % 0.5 % Neutrophils # 4.4 (1.6-8.9) K/mcL Lymphocytes # 2.6 (0.6-4.6) K/mcL Monocytes # 0.5 (0.0-1.3) K/mcL Eosinophils # 0.1 (0.0-0.6) K/mcL Basophils # 0.0 (0.0-0.2) K/mcL PT (9.4-12.1) Seconds INR APTT (26.0-36.0) Seconds Sodium 141 (136-145) mEq/L Potassium 3.3 L (3.5-4.5) mEq/L Chloride 107 (98-109) mEq/L Carbon Dioxide 24 (19-29) mEq/L BUN 5 L (8-26) mg/dL Creatinine 0.85 (0.72-1.25) mg/dL Est GFR ( Amer) > 60 (> 60) Est GFR (Non-Af Amer) > 60 (> 60) BUN/Creatinine Ratio 6 (6-26) Glucose 88 (70-99) mg/dL Calculated Osmolality 289 (280-300) Calcium 9.5 (8.6-10.8) mg/dL Troponin I 0.13 H* (0-0.03) ng/mL 03/01/17 Range/Units 21:39 WBC (4.3-11.1) K/mcL RBC (4.19-5.50) M/mcL Hgb (12.9-16.9) g/dL Hct (37.5-50.1) % MCV (83.0-100.0) fL MCH (28.0-33.3) pg MCHC (31.6-35.5) g/dL RDW (11.5-14.5) % Plt Count (140-400) K/mcL MPV (9.4-12.4) fL Immature Gran % (0-4) % Seg Neutrophils % % Lymphocytes % % Monocytes % % Eosinophils % % Basophils % % Neutrophils # (1.6-8.9) K/mcL Lymphocytes # (0.6-4.6) K/mcL Monocytes # (0.0-1.3) K/mcL Eosinophils # (0.0-0.6) K/mcL Basophils # (0.0-0.2) K/mcL PT 11.4 (9.4-12.1) Seconds INR 1.1 APTT 31.4 (26.0-36.0) Seconds Sodium (136-145) mEq/L Potassium (3.5-4.5) mEq/L Chloride (98-109) mEq/L Carbon Dioxide (19-29) mEq/L BUN (8-26) mg/dL Creatinine (0.72-1.25) mg/dL Est GFR ( Amer) (> 60) Est GFR (Non-Af Amer) (> 60) BUN/Creatinine Ratio (6-26) Glucose (70-99) mg/dL Calculated Osmolality (280-300) Calcium (8.6-10.8) mg/dL Troponin I (0-0.03) ng/mL - Radiology Data Radiology results reviewed: Yes I reviewed the patient's radiology results. Soft Tissue Neck X-Ray 03/01/17 19:27 IMPRESSION: No significant findings in the soft tissues of the neck. D/ / Tyree Flores MD / Tyree Flores MD Interpreting Provider: Tryee Flores MD Chest X-Ray 03/01/17 19:33 IMPRESSION: No significant findings in the chest. D/ / Tyree Flores MD / Tyree Flores MD Interpreting Provider: Tyree Flores MD - EKG Data EKG attestation: Yes I reviewed and interpreted this EKG. EKG results narrative: EKG demonstrates sinus bradycardia with rate of 50 bpm. Normal axis. Patient has deep T-wave inversions in the inferior leads. He also has inversions in V4 through V6. He has a tall T wave in lead V2. His previously compared EKG shows an inferior STEMI S.B.A.R. - S.B.A.R. Situation: Demographics, MOA Background: Presenting Complaint, Relevant PMH, Meds, & Allergies Assessment: Vital Signs, Course and respsone to treatment, Exam Concerns, Patient/Family Expectation, Pertinant Lab Results, Outstanding Labs Recommendation: Barrier(s) to disposition, Recommendation based on pending studies, treatments, or consults S.B.A.R. Report Given to: Dr. Francis Attestation Statement - Attestation Attestation: I, Nicanor Mckeon, examined this patient and my medical decision-making was reviewed with the CHEF SAUCIER/PA/Advanced Practice Nurse/Resident Physician. I agree with the documented findings, disposition and treatment plan as described except to the extent set forth below. 42-year-old male presents with concerns of left-sided chest pain and left neck pain. Patient states symptoms started multiple hours prior to arrival. Patient has a comp dictated recent history with a non-STEMI which was stented and then occluded while on Plavix and had to be taken back to the [employer] Professor. Patient now has a total of 3 stents. Patient has no chest pain in the emergency department. He denies shortness of breath, diaphoresis or palpitations. Patient's ease CG shows sinus bradycardia with a rate of 50 with deep inverted T waves in the inferior and lateral leads without evidence of ST elevation or depression. Patient has an elevated troponin. Resident spoke with the personal chef who recommended that the troponin should have cleared by this time. Patient was given aspirin and started on heparin and he will he admitted to the hospital for continuation of care.
[2017-03-01 20:45] LABS: Basophils % 0.5 %; Eosinophils # 0.1 K/mcL (0.0-0.6); Eosinophils % 1.4 %; Hematocrit 38.1 % (37.5-50.1); Hemoglobin 12.7 g/dL (12.9-16.9); Immature Granulocytes % 0.3 % (0-4); Lymphocytes # 2.6 K/mcL (0.6-4.6); Mean Corpuscular HGB Conc 33.3 g/dL (31.6-35.5); Mean Platelet Volume 12.9 fL (9.4-12.4); Monocytes # 0.5 K/mcL (0.0-1.3); Monocytes % 6.1 %; Neutrophils # 4.4 K/mcL (1.6-8.9); Platelet Count 112 K/mcL (140-400); Red Blood Count 4.38 M/mcL (4.19-5.50); Red Cell Distribution Width 12.2 % (11.5-14.5); Segmented Neutrophils % 57.7 %
[2017-03-01 20:54] LABS: BUN/Creatinine Ratio 6 (6-26); Blood Urea Nitrogen 5 mg/dL (8-26); Calcium 9.5 mg/dL (8.6-10.8); Carbon Dioxide 24 mEq/L (19-29); Chloride 107 mEq/L (98-109); Glucose 88 mg/dL (70-99); Osmolality,Calculated 289 (280-300); Potassium 3.3 mEq/L (3.5-4.5); Sodium 141 mEq/L (136-145); eGFR For African Americans > 60 (> 60); eGFR For Non-African Americans > 60 (> 60)
[2017-03-01] MEDS ORDERED: *HR* Heparin 5,000 UNIT/ML VIAL IVP PRN ×2 (21:20)
[2017-03-01] MEDS ORDERED: *HR* Heparin 5,000 UNIT/ML VIAL IVP ONE (21:20)
[2017-03-01] MEDS ORDERED: Heparin 25,000 UNIT/500 ML D5W 25,000 UNIT/500 ML MLS IVC SCH ×2 (21:30→22:30)
[2017-03-01 21:57] LABS: INR 1.1; Prothrombin Time 11.4 Seconds (9.4-12.1)
[2017-03-01 22:00] LABS: Activated Partial Thrombo Time 31.4 Seconds (26.0-36.0)
[2017-03-02] MEDS: *HR* Morphine 2 MG/ML SYRINGE IVP PRN ×2 (00:24→04:17)
[2017-03-02] MEDS ORDERED: Naloxone 0.4 MG/ML INJ IVP PRN (02:35)
[2017-03-02] MEDS ORDERED: Ondansetron 4 MG/2 ML VIAL IVP PRN (02:35)
[2017-03-02] MEDS ORDERED: Acetaminophen 325 MG TABLET PO PRN (02:35)
[2017-03-02] MEDS ORDERED: 0.9 % Sodium Chloride w KCl 20 MEQ/1,000 ML MLS IVC SCH (02:45)
--- NOTE | 2017-03-02 02:49 | Internal Med History&Physical ---
Date of Encounter: 03/02/17 Time of Encounter: 02:43 Assessment and Plan (1) Neck pain on left side Current visit: Yes Status: Acute 1. Based upon history and exam, I suspect this may be due to angina. 2. Xray imaging was negative. 3. Consider further musculoskeletal work-up after cardiac evaluation. (2) Bradycardia Current visit: Yes Status: Acute 1. Likely due to Beta sri, but may be due to RCA coronary lesion. 2. Hold BB for now and monitor vitals. 3. Currently asymptomatic, but he will need close monitoring. (3) CAD (coronary artery disease) Current visit: Yes Status: Chronic 1. Continue home meds as appropriate. 2. Cycle troponins and KEG's. 3. Will order limited ECHO to assess LV function. 4. Consult cardiology. 5. Heparin gtt as above. Qualifiers: Coronary Disease-Associated Artery/Lesion type: [place] artery [place] vs. transplanted heart: [place] heart Associated angina: with other forms of angina Qualified Code(s): I25.118 - Atherosclerotic heart disease of [place] coronary artery with other forms of angina pectoris (4) Elevated troponin Current visit: No Status: Acute 1. Heparin gtt and Morphine IV for pain. 2. Trend troponins and monitor clinically. 3. cardiology consult and ECHO as above. (5) DVT prophylaxis Current visit: Yes Status: Acute 1. On heparin gtt. Internal Medicine - H&P: HPI Chief complaint: neck pain/chest fluttering Admitted From: Emergency Dept Plans for Post Hospital Care: Home History of present illness: Mr. Rodriguez is a 42 year old male who presents to ER [facility] with complaints of left sided neck pain and fluttering in his chest. Symptoms occurred while he was grocery shopping earlier [facility] with his . Because of persistent symptoms and recent inferior wall STEMI, he came to ER for evaluation. Imaging of his neck and chest were negative. However, he did have a troponin elevation of 0.13. He was hospitalized about 3 weeks ago for an inferior wall STEMI and underwent urgent left heart catheterization and stent placement. Since then, he has been doing well until today when he noted the above symptoms. He denies any chest pain, heaviness, or shortness of breath. However, he did note he had some fluttering in his chest. He has been coughing somewhat since his heart catheterization, but he quit smoking cold turkey and it appears that he has developed the "smoker's cough" and mucus production often associated with smoking cessation. Otherwise, he feels well until today's events. He denies any current neck pain. He states the pain was more of a pressure and heaviness in his neck with radiation to his left shoulder. ER contacted Dr. Farrell mobile phone salesperson for cardiology, and she recommended initiating heparin drip. He denies any missed dosages of his medications. He denies any lightheadedness, dizziness , or syncope. He is bradycardic at this time with a heart rate in the high 40s to low 50s. Past Med Surg Social Fam HX - Past Medical History Attestation: Yes The following information was validated with the patient. Source: patient, old records reviewed Medical history: coronary artery disease, hyperlipidemia, hypertension, myocardial infarction Psychiatric history: no psych history - Past Surgical History Surgical History: angioplasty/stent - Social History Smoking Status: Former smoker Smokeless Tobacco Status: No Alcohol use: occasionally Drug use: marijuana Occupational status: employed Current living situation: Home, With Family Activity Level: Independent ambulation, Very active Recent Out of Country Travel Within the Last 8 Weeks: No - Family History Grandfather Hx Family Cardiac Disorders: Yes (MYOCARDIAL INFARCTION.) Father Hx Family Cardiac Disorders: Yes ([place]) Internal Medicine - H&P: Meds Aspirin 81 mg PO DAILY #30 tab.chew 02/17/17 [Rx] Atorvastatin [Lipitor] 40 mg PO HS #30 tablet 02/17/17 [Rx] Ticagrelor [Brilinta] 90 mg PO Q12H #60 tablet 02/17/17 [Rx] Metoprolol XL (24 HR) Succ [Toprol XL] 50 mg PO DAILY 03/01/17 [History] Allergies clopidogrel [From Plavix] Adverse Reaction (Verified 03/01/17 21:55) See Comments Patient states "it doesn't work" - Constitutional Constitutional: no chills, no fever(s), no night sweats - EENT Eyes: no blurry vision, no change in vision Ears: no ear pain, no tinnitus Nose, mouth and throat: no dental pain, no facial pain, no nasal congestion, no sinus pressure, no sore throat - Cardiovascular Cardiovascular ROS IM: palpitations, no chest pain, no dyspnea, no dyspnea on exertion, no edema, no lightheadedness, no syncope - Respiratory Respiratory: cough, excessive phlegm production, no dyspnea, no hemoptysis, no dyspnea on exertion, no wheezing, no chest congestion, no change in phlegm color , no pain with cough - Gastrointestinal Gastrointestinal: no abdominal pain, no diarrhea, no hematemesis, no hematochezia, no melena, no nausea, no vomiting - Genitourinary Genitourinary ROS male: no dysuria, no flank pain, no hematuria - Musculoskeletal Musculoskeletal ROS IM: no arthralgias, no back pain - Integumentary Integumentary IM: no rash, no jaundice - Neurological Neurological ROS: no focal weakness, no frequent falls, no headache(s), no weakness - Psychiatric Psychiatric: no anxiety, no depression - Endocrine Endocrine IM: no polydipsia, no polyuria - Hematologic/Lymphatic Hematologic/Lymphatic: easy bruising, no lymphadenopathy - Allergic/Immunologic Allergic/Immunologic: no wheezing, no GI upset with certain foods - Constitutional Vitals: Temp Pulse Resp BP Pulse Ox 97.3 F L 50 15 142/83 94 03/02/17 00:25 03/02/17 00:25 03/02/17 00:25 03/02/17 00:25 03/02/17 00:33 General appearance: Present: cooperative, A&O X 3, pleasant, no acute distress - Head Head exam: Present: atraumatic, normal inspection - Expanded Head Exam Head exam expanded: Absent: abrasion, contusion, general tenderness - Eye Eye exam: Present: EOMI, normal appearance, PERRL. Absent: scleral icterus Pupils: Present: normal accommodation - ENT ENT exam: Present: mucous membranes dry, normal exam, normal oropharynx - Neck Neck exam general surgery: Present: full ROM, normal inspection, supple. Absent : lymphadenopathy, tenderness, thyromegaly - Expanded Neck Exam Neck exam: Absent: carotid bruit - Respiratory Respiratory exam: Present: CTAB. Absent: chest wall tenderness, rales, stridor , wheezes - Cardiovascular Cardiovascular exam: Present: bradycardia, +S1, +S2. Absent: RRR - GI/Abdominal GI/Abdominal exam: Present: normal bowel sounds, soft. Absent: hepatomegaly, splenomegaly, tenderness - Extremities Exam Extremities exam: Present: full ROM, warm, radial pulses palpable and symetrical. Absent: calf tenderness, joint swelling, pedal edema, tenderness - Back Exam Back exam: Present: normal inspection. Absent: CVA tenderness (L), CVA tenderness (R) - Neurological Exam Neurological exam: Present: alert, CN II-XII intact, oriented X3, no focal deficits - Psychiatric Psychiatric exam: Present: normal affect, normal mood - Skin Skin exam: Present: dry, warm. Absent: rash Internal Med - H&P Results - Labs CBC & Chem 7: 03/01/17 20:13 03/01/17 20:13 - EKG Data -: EKG Interpreted by Myself EKG shows normal: sinus rhythm Rate: bradycardia - EKG Data Prior EKG available for review: yes When compared to previous EKG: there are significant changes EKG comments: 03/02/17 02:54 Sinus bradycardia with inferolateral flipped T waves and subtle ST-T depression - Diagnostic Studies Chest x-ray Status: image reviewed by me Additional comments: negative - VTE Reasons for not Prescribing Prophylaxis: Not indicated-Anticoagulated or INR therapeutic
[2017-03-02 04:47] LABS: Basophils % 0.5 %; Hemoglobin 12.4 g/dL (12.9-16.9); Mean Corpuscular Volume 86.9 fL (83.0-100.0); Monocytes % 5.4 %; Red Cell Distribution Width 12.2 % (11.5-14.5)
[2017-03-02 04:49] LABS: Eosinophils # 0.1 K/mcL (0.0-0.6); Eosinophils % 1.5 %; Hematocrit 36.4 % (37.5-50.1); Immature Granulocytes % 0.2 % (0-4); Immature Platelets 16.1 % (1.1-6.1); Lymphocytes # 2.5 K/mcL (0.6-4.6); Lymphocytes % 38.7 %; Mean Corpuscular HGB Conc 34.1 g/dL (31.6-35.5); Mean Corpuscular Hemoglobin 29.6 pg (28.0-33.3); Mean Platelet Volume 12.8 fL (9.4-12.4); Monocytes # 0.4 K/mcL (0.0-1.3); Neutrophils # 3.5 K/mcL (1.6-8.9); Red Blood Count 4.19 M/mcL (4.19-5.50); Segmented Neutrophils % 53.7 %
[2017-03-02 04:56] LABS: Alanine Aminotransferase 9 Units/L (0-55); Albumin 3.2 g/dL (3.5-5.0); Albumin/Globulin Ratio 1.1 (1.1-2.2); Alkaline Phosphatase 67 Units/L (38-126); Aspartate Amino Transferase 11 Units/L (5-34); BUN/Creatinine Ratio 6 (6-26); Bilirubin,Total 0.4 mg/dL (0.2-1.2); Blood Urea Nitrogen 5 mg/dL (8-26); Calcium 8.9 mg/dL (8.6-10.8); Carbon Dioxide 25 mEq/L (19-29); Chloride 109 mEq/L (98-109); Chol/HDL Ratio 3.7 (0-4.9); Cholesterol 115 mg/dL (< 200); Globulin 2.9 g/dL (2.4-3.5); Glucose 92 mg/dL (70-99); HDL Cholesterol 31 mg/dL (40-59); LDL Cholesterol,Calculated 59 mg/dL (0-99); Magnesium 1.9 mg/dL (1.6-2.6); Osmolality,Calculated 291 (280-300); Potassium 3.8 mEq/L (3.5-4.5); Sodium 142 mEq/L (136-145); Total Protein 6.1 g/dL (6.0-8.3); Triglycerides 126 mg/dL (< 150); eGFR For African Americans > 60 (> 60); eGFR For Non-African Americans > 60 (> 60)
[2017-03-02 05:01] LABS: Platelet Count 93 K/mcL (140-400)
--- NOTE | 2017-03-02 06:43 | Electrocardiograph Report ---
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
--- NOTE | 2017-03-02 08:19 | Event Note ---
Date of Encounter: 03/02/17 Time of Encounter: 08:18
[2017-03-02] MEDS ORDERED: *HR* Ticagrelor 90 MG TABLET PO SCH (09:00)
[2017-03-02] MEDS ORDERED: Aspirin 81 MG TAB.CHEW PO SCH (09:00)
--- NOTE | 2017-03-02 09:18 | Cardiology Consult Note ---
Date of Encounter: 03/02/17 Time of Encounter: 09:10 Assessment and Plan (1) Chest pain Current Visit: No Status: Resolved Chest discomfort in setting of recent PCI, stent thrombosis, followed by repeat PCI to RCA (3 total stents). Mild, adynamic troponin elevation. ECG demonstrates new deep symmetric inferior T wave changes and anterolaterl ST- T changes suggestive of ischemia. A repeat ECG after STEMI and repeat cardiac catheterization was not performed during last stay. Given return of chest discomfort, history of stent thrombosis, persistent mild troponin elevation, and these new ECG changes, we discussed a repeat coronary angiogram. We discusseed the r/b/a to a [facility]. He and his are agreeable. Continue DAPT, statin, BB, and heparin drip. Limited echocardiogram. Further recommendations to follow. Qualifiers: Chest pain type: chest pain due to myocardial ischemia Qualified Code(s): I20.9 - Angina pectoris, unspecified (2) Abnormal ECG Current Visit: Yes Status: Acute (3) Stented coronary artery Current Visit: Yes Status: Acute (4) CAD (coronary artery disease) Current Visit: Yes Status: Chronic Qualifiers: Coronary Disease-Associated Artery/Lesion type: [place] artery [place] vs. transplanted heart: [place] heart Associated angina: with other forms of angina Qualified Code(s): I25.118 - Atherosclerotic heart disease of [place] coronary artery with other forms of angina pectoris (5) HTN (hypertension) Current Visit: No Status: Acute Qualifiers: Hypertension type: essential hypertension Qualified Code(s): I10 - Essential (primary) hypertension (6) HLD (hyperlipidemia) Current Visit: No Status: Chronic Qualifiers: Hyperlipidemia type: unspecified Qualified Code(s): E78.5 - Hyperlipidemia , unspecified Discussion w patient/family: The assessment and plan as outlined above was discussed with the patient and/or family members who expressed understanding and agreement. All questions were answered. Thank you for involving us in the care of your patient. Please call with any questions. History of Present Illness Consult date: 03/02/17 Requesting physician: Venkat Francis Consult reason: Chest pain, Recent DC Chief complaint: Chest pain History of present illness: Mr. Rodriguez is a 42 year old male recently discharged after treatment for a NSTEMI. PCI performed to proximal RCA. Unfortunately, subsequent stent thrombosis resulted in an inferior STEMI and repeat LHC resulted in additional PCI with bioabsorbable stents in the mid and distal RCA. Presented with chest pain while walking through grocery store. Left sided, no radiation, not as intense as previous. Placed on heparin in addition to PO ACS medications overnight. Troponins 0.13, 0.13. ECG - deep, symmetric T wave inversions and anteriolateral ST-T changes new compared to previous. Past Med Surg Social Fam HX - Past Medical History Medical history: coronary artery disease, hyperlipidemia, hypertension, myocardial infarction Psychiatric history: no psych history - Past Surgical History Surgical History: angioplasty/stent - Social History Smoking Status: Former smoker Smokeless Tobacco Status: No Alcohol use: occasionally Drug use: marijuana - Family History Grandfather Hx Family Cardiac Disorders: Yes (MYOCARDIAL INFARCTION.) Father Hx Family Cardiac Disorders: Yes ([place]) Medications and Allergies Aspirin 81 mg PO DAILY #30 tab.chew 02/17/17 [Rx] Atorvastatin [Lipitor] 40 mg PO HS #30 tablet 02/17/17 [Rx] Ticagrelor [Brilinta] 90 mg PO Q12H #60 tablet 02/17/17 [Rx] Metoprolol XL (24 HR) Succ [Toprol XL] 50 mg PO DAILY 03/01/17 [History] Allergies clopidogrel [From Plavix] Adverse Reaction (Verified 03/01/17 21:55) See Comments Patient states "it doesn't work" All Systems Review: A 10-system review of systems was performed and is negative for pertinent findings except as documented above in the HPI. - Cardiovascular Cardiovascular: as per HPI Physical Examination Vital Signs, Last 4 Hours Temp Pulse Resp BP Pulse Ox 03/02/17 06:57 98.2 F 55 16 114/71 96 General: Conversant, No Apparent Distress HEENT: Atraumatic, Normocephaly, Mucus Membranes Moist Neck: No JVD, Normal carotid pulses Cardiac: Reg Rate and Rhythm, Normal S1 and S2, No Murmur Lungs: Normal Breath Sounds, No Wheeze, Rales, Rhonchi Neuro: Alert and responsive, No focal deficits noted Abdomen: Soft, Non-Tender Skin: No rashes noted on visualized skin Musculoskeletal: No Chest Wall Tenderness Extremities: No Clubbing, No Cyanosis, No Edema Results 03/02/17 04:12 03/02/17 04:12 Lab Results 03/02/17 03/02/17 03/02/17 04:12 04:12 04:12 WBC 6.5 Hgb 12.4 L Hct 36.4 L Plt Count 93 L APTT 50.9 H D Sodium Potassium Chloride Carbon Dioxide BUN Creatinine Glucose Calcium Magnesium Total Bilirubin AST ALT Alkaline Phosphatase Troponin I 0.13 H* 03/02/17 04:12 WBC Hgb Hct Plt Count APTT Sodium 142 Potassium 3.8 Chloride 109 Carbon Dioxide 25 BUN 5 L Creatinine 0.81 Glucose 92 Calcium 8.9 Magnesium 1.9 Total Bilirubin 0.4 AST 11 ALT 9 Alkaline Phosphatase 67 Troponin I - Imaging and Cardiology Echo: report reviewed Cardiac cath: report reviewed - EKG Interpretation EKG results cardiology: personally reviewed Consult Discharge Plan - Plan Referrals: Hayden Arita DO [Primary Care Provider] -
[2017-03-02] MEDS ORDERED: Metoprolol XL (24 HR) Succ 50 MG TAB.ER.24H PO SCH (10:15)
--- NOTE | 2017-03-02 10:42 | Pre-Sedation Evaluation ---
Pre-sedation evaluation - Pre-sedation checklist Date of procedure: 03/02/17 Procedure: LHC Recent Vitals: Last Vital Signs Temp 98.2 F 03/02/17 06:57 Pulse 55 03/02/17 06:57 Resp 16 03/02/17 06:57 BP 114/71 03/02/17 06:57 Pulse Ox 96 03/02/17 06:57 H&P (including ROS) documented in medical record: Yes Previous reaction to sedatives/anesthetics: No Dietary Status: NPO after Midnight ASA Classification *see protocol: CLASS II-Mild systemic disease Plan of Care: Pt appropriate candidate for procedure/moderate/conscious sedation , Risks/benefits of procedure/sedation discussed w/ patient/family
[2017-03-02] MEDS ORDERED: *HR* Midazolam HCl 2 MG/2 ML VIAL ONE ×2 (12:58→13:27)
[2017-03-02] MEDS ORDERED: *HR* FentaNYL (PF) 100 MCG/2 ML VIAL ONE (12:59)
[2017-03-02] MEDS ORDERED: 0.9 % Sodium Chloride 2,000 ML ONE (12:59)
[2017-03-02] MEDS ORDERED: Verapamil 5 MG/2 ML VIAL ONE (12:59)
[2017-03-02] MEDS ORDERED: *HR* Heparin 10,000 UNIT/10 ML VIAL ONE (13:00)
[2017-03-02] MEDS ORDERED: Nitroglycerin 1,000 MCG/10 ML VIAL IV ONE (13:00)
[2017-03-02] MEDS ORDERED: Heparin 1,000 UNITS/500 mL NS 500 ML ONE (13:00)
[2017-03-02] MEDS ORDERED: *HR* Morphine 2 MG/ML SYRINGE IVP PRN (13:32)
[2017-03-02] MEDS ORDERED: *HR* OxyCODONE/APAP 5/325 TABLET PO PRN (13:32)
--- NOTE | 2017-03-02 14:13 | Invasive Diagnostic Lab Proc ---
Name: Stephon Rodriguez Date of Study: 03/02/2017 Date: 1975 Ht: 70.1in Medical Record#: [id number] Age: 42 Wt: 194.01lb Gender: Male BSA: 2.06 Order #: [id number] BMI: 27.77 Physicians Procedure Physician: Shankar Roberto MD, [facility] Referring MD: Hayden Arita DO Referring MD: Staff Name Position Time In Mona Mckeon RN Care Nurse Rn 12:53 PM Odalis Arenas RT (R) Scrub 12:53 PM Bryan Del Angel RN Monitor 12:53 PM 01:05 PM Indications Indication Non-Stemi Procedures Performed Procedure L HRT ARTERY/VENTRICLE ANGIO Pre-Procedure Checklist Informed consent is complete signed and on chart. H\\T\\P is on chart. ID band is on and ID verified with patient. Patient NPO for procedure The procedure was described for the patient and questions were answered. Blood Pressure: 114/71 ECG is on chart. Rhythm: NSR Plan of Care Patient will tolerate the procedure without complications. Adequate level of comfort will be maintained. Hemodynamics will remain stable Patient will recover from procedure without complications. Respiratory function will be maintained. Cardiac rhythm will remain stable. Patient temperature will be maintained. Patient and/or family have verbalized understanding of the procedure. Patient Education Chief Complaint/Reason for Test: Cardiac Cath Developmental Category: Adult (18-64 years) Developmentally Appropriate for Age: Yes Learning Barriers: None Education Needs: Procedure Education Method: Verbal Information Taught: Cardiac Cath Educational Evaluation: Able to repeat information Intravenous Access Time IV Size Location DC'd Fluid/Drip Rate Units RN 18g 1 11/30" Patent On Arrival Lt Hand 0.9NaCl 25 ml/hr Mona Mckeon RN Allergies clopidogrel Vital Signs Time BP (mmHg) HR (bpm) O2 Sat. RR (bpm) LOC 12:00 PM 114 / 71 55 96 % 15 5 = Fully awake and oriented or at pre-proc level 01:06 PM / % 5 = Fully awake and oriented or at pre-proc level 01:06 PM / % 4 = Oriented but drowsy 01:27 PM / % 5 = Fully awake and oriented or at pre-proc level 01:16 PM 84 / 52 56 100 % 34 01:21 PM 141 / 78 53 100 % 19 01:22 PM 136 / 79 53 100 % 9 01:26 PM 131 / 62 59 99 % 19 01:31 PM 136 / 76 50 98 % 15 01:36 PM 129 / 72 53 98 % 13 01:41 PM 123 / 65 59 99 % 21 01:46 PM 123 / 54 60 95 % 15 01:51 PM 126 / 67 59 96 % 6 Procedural Medications Time Medication Dose Units Method Given By 01:06 PM Oxygen 2 L/min nasal cannula Mona Mckeon RN 01:27 PM Versed 2 mg Intravenous [place] millard RN 01:28 PM Fentanyl 50 mcg Intravenous Mona Mckeon RN 01:29 PM Versed 1 mg Intravenous Mona Mckeon RN 01:41 PM Lidocaine 2% 1 ml Subcutaneous Shankar Roberto MD, FACC 01:41 PM Versed 1 mg Intravenous Mona Mckeon RN 01:41 PM Fentanyl 50 mcg Intravenous Mona Mckeon RN 01:42 PM Heparin 2000 units Nitroglycerin 200 mcg Verapamil 2.5 mg Intraarterial Shankar Roberto MD, FACC 01:45 PM Nitroglycerin 200 mcg Intracoronary Shankar Roberto MD ASA Classification: CLASS II- Mild systemic disease (i.e. well-controlled diabetes, hypertension, asthma, cigarette smoking) Makenna Score Preprocedure Postprocedure Activity 2- Moves 4 extremities sustained head lift Activity 2- Moves 4 extremities sustained head lift Circulation 2- SBP +/= 20 points of pre-anesthetic level Circulation 2- SBP +/= 20 points of pre-anesthetic level Consciousness 2- Awake and alert oriented x 3 Consciousness 2- Awake and alert oriented x 3 O2 Saturation 2- Able to maintain O2 satruation of 92% on room air O2 Saturation 2- Able to maintain O2 satruation of 92% on room air Respiratory 2- Able to deep breathe and cough well Respiratory 2- Able to deep breathe and cough well Total Score 10 Total Score 10 Contrast Agent: Isovue Diagnostic Contrast: 69 ml Total Contrast: 69 ml Fluoro Dose: 189 mGy Procedure Log Time Note Enter By 12:53 PM Mona Mckeon RN Position: Care Nurse Rn Time in: 12:53 csmith 12:53 PM Odalis Arenas RT (R) Position: Scrub Time in: 12:53 csmith 12:53 PM Bryan Del Angel RN Position: Monitor Time in: 12:53 csmith 01:05 PM Pt arrived to photo lab specialist 2 at 13:05 csmith 01:06 PM Patient charges- Angio tray pack, Navilyst 3mm J, Pulse Oximetry and ACIST tubing and transducer csmith : PM Time: 13:06 Oxygen on at 2 L/min per nasal cannula by Mona Mckeon RN csmith : PM Time: 13:06 Patient comfortable and pain free: Yes [facility] PM Time: 13:06LOC: 5 = Fully awake and oriented or at pre-proc level csmith 01:06 PM CathStat 01:06 PM Case Start 01:08 PM was on heparin gtt prior to lab scientist arrival csmith 01:13 PM Sign in performed according to hospital policy. csmith 01:13 PM Procedure start 13:13 csmith 01:14 PM Hair removed from procedure site in procedure lab using clippers. Right wrist \\T\\ right groin prepped with Chloraprep by Odalis Arenas RT (R), safety strap applied then patient was draped. Skin intact. csmith :14 PM ASA Class CLASS II- Mild systemic disease (i.e. well-controlled diabetes, hypertension, asthma, cigarette smoking) csmith 01:16 PM Vitals capture started with the following parameters, Patient=Adult, Interval=5 min, Initial Fatfhzqv=260 mmHg, Deflation Rate=5 mmHg, Cuff placed on Left Arm 01:16 PM HR=56 bpm, NIBP=84/52 mmhg, FdZ4=803.0 %, Resp=34 B/min, Comment=sb w/inf. depression 01:19 PM NIBP STAT measurement started. 01:21 PM HR=53 bpm, XSDU=334/78 mmhg, GqV6=323.0 %, Resp=19 B/min, Comment=sb w/inf. depression 01:22 PM HR=53 bpm, TYCY=952/79 mmhg, BiB3=865.0 %, Resp=9 B/min, Comment=sb w/inf. depression 01:26 PM HR=59 bpm, SNZH=671/62 mmhg, SpO2=99.0 %, Resp=19 B/min, Comment=sb w/inf. depression : PM Time: 13:06LOC: 4 = Oriented but drowsy csmith : PM Time: 13:06 Patient comfortable and pain free: Yes [facility] : PM Recorded ECG: HR=55 Condition=Condition 1 01:27 PM Time: 13: Versed 2 mg Intravenous Given by Mona Mckeon RN csmith 01:28 PM Time: 13: Fentanyl 50 mcg Intravenous Given by Mona Mckeon RN csmith 01:29 PM Time: 13:29 Versed 1 mg Intravenous Given by Mona Mckeon RN csmith 01:31 PM HR=50 bpm, KXXC=121/76 mmhg, SpO2=98.0 %, Resp=15 B/min, Comment=sb w/inf. depression 01:[address] roberto made aware of poor PT/DP pulses in BLE csmith 01:36 PM HR=53 bpm, VWIB=695/72 mmhg, SpO2=98.0 %, Resp=13 B/min, Comment=sb w/inf. depression 01:41 PM Time out performed according to hospital policy csmith 01:41 PM Time: 13:41 1 ml Lidocaine 2% to right radial Subcutaneous Given by Shankar Roberto MD, [facility] csmith 01:41 PM Time: 13:41 Versed 1 mg Intravenous Given by Mona Mckeon RN csmith 01:41 PM Time: 13:41 Fentanyl 50 mcg Intravenous Given by Mona Mckeon RN csmith 01:41 PM HR=59 bpm, VUUD=059/65 mmhg, SpO2=99.0 %, Resp=21 B/min, Comment=sb w/inf. depression 01:42 PM Time: 13:27 Patient comfortable and pain free: Yes csmith :42 PM Time: 13:27LOC: 5 = Fully awake and oriented or at pre-proc level csmith 01:42 PM Access obtained by percutaneous puncture. 5/6Fr 11cm Terumo Glidesheath sheath placed in right Radial artery. [id number] csmith 01:42 PM Time: 13:42 Patient given 2000 units Heparin, 200 mcg Nitroglycerin, and 2.5 mg Verapamil Intraarterial by Shankar Roberto MD, [facility] csmith 01:42 PM 5Fr JR4 catheter inserted over the wire [id number] csmith 01:43 PM 0.035 260cm Navilyst 3mmJ wire [id number] csmith 01:45 PM Recorded Pressure: Ao, HR=60, Condition=Condition 1 (Aorta) Ao 93/72/83 01:45 PM RCA angiography performed in multiple views. csmith 01:45 PM Time: 13:45 Nitroglycerin 200 mcg Intracoronary Given by Shankar Roberto MD csmith 01:46 PM Catheter removed csmith 01:46 PM 5Fr FR 4 catheter inserted over the wire DN csmith 01:46 PM HR=60 bpm, QQRV=352/54 mmhg, SpO2=95.0 %, Resp=15 B/min, Comment=sr w/inf. depression 01:49 PM LCA angiography performed in multiple views. csmith 01:50 PM Recorded Pressure: Ao, HR=56, Condition=Condition 1 (Aorta) Ao 90/64/77 01:50 PM Catheter removed csmith 01:51 PM 5Fr Pigtail catheter inserted over the wire DN csmith 01:51 PM Catheter selectively placed in left ventricle csmith 01:51 PM Pressure channel 1 zero failed. 01:51 PM Pressure channel 1 zero failed. 01:51 PM Pressure channel 1 zeroed. 01:51 PM HR=59 bpm, ABOA=583/67 mmhg, SpO2=96.0 %, Resp=6 B/min, Comment=sb w/inf. depression 01:52 PM Recorded Pressure: LV, HR=53, Condition=Condition 1 (Left Ventricle) LV 86/4/10 01:53 PM Bolus angiogram of left Ventricle complete: 10 ml/sec for a total of 30 mls csmith 01:54 PM Recorded Pressure: LV, Ao, HR=65, Condition=Condition 1 (Left Ventricle) LV 108/8/13, (Aorta) Ao 106/69/90 01:55 PM Catheter removed csmith 01:55 PM Wire removed csmith 01:56 PM Procedure completed at 13:56 csmith 01:58 PM Sign out completed: Radiation Dose 189 mGy Fluoro Time: 2.2 Isovue 370 - 200ml contrast 69 ml given by Shankar Roberto MD, [facility]. Complications: NoneCardiac Rehab Consult needed: NoConfirmed administered medications: Yes csmith 01:58 PM Isovue 370 - 200ml,1 Bottle(s) used. csmith 01:59 PM Arterial sheath pulled, Vasc Band closure device used and was Successful S/N. csmith 01:59 PM 13 ml air in Vasc Band. csmith 01:59 PM Post ECG NSR csmith 01:59 PM Post Blood Pressure 133/64 csmith 01:59 PM 13:59 Post Pulses Right radial 2+ csmith 01:59 PM Information taught Cardiac Cath and Vasc Band csmith 01:59 PM Education needs Responsibilities of Patient in Care csmith 01:59 PM Learning barriers :None csmith 02:00 PM Education Methods Verbal csmith 02:00 PM Education evaluation Able to repeat information csmith 02:01 PM Site status No bleeding/hematoma - Rt Wrist as reported by Odalis Arenas RT (R) at 14:01 csmith 02:01 PM Report given to Tania JI Pt taken to 2A Room #13. 14:01 csmith 02:01 PM Plavix, Effient or Brilinta given No csmith 02:01 PM Patient out of room: 14:01 csmith 02:01 PM Family placed in consult room. [facility] Complications Complication None Hemodynamics Pressures Site Systolic/A Wave Diastolic/V Wave Mean AO 93 72 83 AO 90 64 77 LV 86 4 10 LV 108 8 13 AO 106 69 90 Post Procedure Information Blood Pressure: 133/64 mmHg Rhythm: NSR Post procedural instructions were given Closure Device Time Device Success/Fail 03/02/2017 2:02:00 PM Mechanical Compression Successful Site Checks Time Location Status Staff Sheath In? Note 02:01 PM Rt Wrist No bleeding/hematoma Odalis Arenas RT (R) Pulses Time Site Pre-Procedure Post-Procedure Note 03/02/2017 1:08:00 PM Bilateral DP \\T\\ PT Doppler Bilateral radial Doppler 1:59:00 PM Right radial 2+ Updated by Bryan Del Angel RN on 03/02/2017 2:06:58 PM electronically signed on 03/02/2017 2:07:36 PM with status of Final
[2017-03-02 16:53] VITALS: BP 117/71
--- NOTE | 2017-03-02 17:12 | Discharge Summary ---
Date of Encounter: 03/02/17 Time of Encounter: 17:10 - Discharge Diagnosis (1) Neck pain on left side Priority: Primary Status: Acute (2) Elevated troponin Priority: Primary Status: Acute (3) HTN (hypertension) Priority: Secondary Status: Chronic Qualifiers: Hypertension type: essential hypertension Qualified Code(s): I10 - Essential (primary) hypertension (4) HLD (hyperlipidemia) Priority: Secondary Status: Chronic Qualifiers: Hyperlipidemia type: unspecified Qualified Code(s): E78.5 - Hyperlipidemia , unspecified (5) Tobacco abuse Priority: Secondary Status: Chronic (6) CAD (coronary artery disease) Priority: Secondary Status: Chronic Qualifiers: Coronary Disease-Associated Artery/Lesion type: [place] artery [place] vs. transplanted heart: [place] heart Associated angina: with other forms of angina Qualified Code(s): I25.118 - Atherosclerotic heart disease of [place] coronary artery with other forms of angina pectoris - Discharge Medications Home Medications: Aspirin 81 mg PO DAILY #30 tab.chew 02/17/17 [Rx] Atorvastatin [Lipitor] 40 mg PO HS #30 tablet 02/17/17 [Rx] Ticagrelor [Brilinta] 90 mg PO Q12H #60 tablet 02/17/17 [Rx] Metoprolol XL (24 HR) Succ [Toprol Xl] 25 mg PO DAILY #0 03/02/17 [Rx] Allergies/Adverse Reactions: Allergies clopidogrel [From Plavix] Adverse Reaction (Verified 03/01/17 21:55) See Comments Patient states "it doesn't work" Procedures/tests Complete & Pending: Procedures Performed prior 72 hours Category Date Time Status CL Cardiac Catheterization [CL] Routine [employer] 03/02/17 09:32 Ordered ECG 12 lead ECG [ECG] AM 0600 Y 03/02/17 06:00 Ordered EV limited echocardiogram Routine Y 03/02/17 02:35 Ordered Date of admission: 03/01/17 22:19 Primary care physician: Hayden Schreiber Consults: 03/02/17 02:39 Consult to Physician [CONS] Routine Consulting Provider: Andre Lopez Reason for Consult: CP/neck pain; recent STEMI Call Completed: No Discharging clinician: Nae Tsai Anticipated date of discharge: 03/02/17 - Patient Status Disposition: Home, Self-Care Condition: Good Functional capacity at discharge: independent ambulation Overall status at discharge: patient is progressing back to baseline - Discharge Instructions Instructions: Left Heart Catheterization (DC) Follow Up With: Hayden Arita DO [Primary Care Provider] - Nicanor Farfan [Non-Partnered Physician] - 03/13/17 5:00 pm (New Patient, Follow -Up visit) - Diet and Activity Activity: increase activity as tolerated Diet: low fat, low cholesterol, low salt diet Hospital course: Mr. Rodriguez is a 42 year old male with history of recent inferior wall LA status post stents, was admitted with sudden new onset of left-sided neck and chest pain. EKG showed evidence of new T-wave inversions in lateral leads. Patient was also noted to have a mild troponin leak. He was started on IV heparin drip for possible non-ST elevation LA. Cardiology was consulted and patient underwent left heart catheterization, which showed ejection fraction around 40% with patent stents in proximal and mid RCA. Patient remained hemodynamically stable and his neck pain is less likely due to cardiac etiology and likely due to muscle strain or reactive lymphadenopathy, although no palpable cervical lymph nodes were noted on examination. Chest x-ray and soft tissue neck x-ray revealed no acute abnormality. Patient is otherwise medically stable for discharge with outpatient follow-up. Time spent discussing smoking cessation with patient: 3 to 10 minutes - Time Spent with Patient Total time spent providing and/or coordinating discharge services: Greater than 30 minutes (45 min) - Constitutional Vitals: Temp Pulse Resp BP Pulse Ox 98.3 F 54 16 117/71 98 03/02/17 16:30 03/02/17 16:30 03/02/17 16:30 03/02/17 16:30 03/02/17 16:30 General appearance: Present: cooperative, A&O X 3, answers questions appropriately - Respiratory Respiratory exam: Present: CTAB. Absent: accessory muscle use, rales, rhonchi, wheezes - Cardiovascular Cardiovascular exam: Present: RRR, +S1, +S2. Absent: diastolic murmur, gallop, rubs, systolic murmur - VTE Reasons for not Prescribing Prophylaxis: Not indicated-Anticoagulated or INR therapeutic
--- NOTE | 2017-03-02 17:19 | Event Note ---
Date of Encounter: 03/02/17 Time of Encounter: 17:[address] Contreras. Patent stents reported in RCA. V-gram demonstrated reduced EF, likely due to prior inferior STEMI (stent thrombosis), LVEF 40%. Recommend continue DAPT, statin, and BB therapy. Consider addition of ACEi as outpatient. BP relatively low at times. No further inpatient cardiology recommendations. Followup with cardiology as outpatient. Thanks, Andre Lopez DO, FACC
[2017-03-03] MEDS ORDERED: Metoprolol XL (24 HR) Succ 50 MG TAB.ER.24H PO SCH (09:00)
--- NOTE | 2017-03-03 09:38 | Invasive Diagnostic Lab ---
Name: Stephon Rodriguez Date of Study: 03/02/2017 Date: 1975 Ht: 178.0 cm /70.1 in Medical Record#: [id number] Age: 42 Wt: 88. kg / 194.01 lb Account/Order#: [id number] Gender: Male BSA: 2.06 Order #: [id number] Fluoro Dose: 189 mGy BMI: 27.77 Procedure Physician: Shankar Contreras MD, FACC Referring MD: Hayden Arita DO Referring MD: Procedures Performed: LEFT HEART CATH Indications: Non-Stemi Impressions: The left ventricle is normal and has mildly abnormal contractility EF 40% Stent placed from a prior procedure in the mid and distal RCA is patent. Recommendations: Optimal medical therapy of patient's disease. Aggressive risk factor modification. History/Risk Factors: Hypertension Dyslipidemia Current/Recent Smoker Prior [place] Previous PCI Date: 01/19/2017 Procedure Access obtained in the right Radial artery by percutaneous puncture Complications: None Contrast: Isovue 69ml Closure Device: Mechanical Compression Hemodynamics: Pressures Site Systolic/ A Wave Diastolic/ V Wave End Diastolic/ Mean HR AO 93 72 83 60 AO 90 64 77 56 LV 86 4 10 53 LV 108 8 13 65 AO 106 69 90 64 LV Ventriculography Ejection Method: LV Gram Ejection Fraction: 40% Wall Motion: HIGHTOWER Anterobasal Normal Anterolateral Normal Apical: Normal Inferoapical Severe Hypokinesis Inferobasal Severe Hypokinesis Coronary Dominance: right Lesion Findings/Interventions * Left Main Coronary Artery The LMCA is angiographically free of disease. * Left Anterior Descending The LAD has mild proximal and mid disease The 1st Diagonal has mild disease * Circumflex The Circumflex is angiographically free of disease. The 1st Marginal is angiographically free of disease. * Right Coronary Artery The RCA is angiographically free of disease. There are patents stents noted to the mid and distal RCA. The Right PDA is angiographically free of disease. Updated by Bryan Del Angel RN on 03/02/2017 2:06:14 PM [facility]ras MD, [facility] electronically signed on 03/03/2017 9:32:33 AM with status of Final
== END 2017-03-02 17:40 | disposition home or self-care (01) | DRG 347 ==
LOC: EMEROO 18:58 → 2ANU 18:58 → SUATTDRO 22:19 → 2ANU 23:35
PROVIDERS: ADMIT Internal Medicine; ATTEND Internal Medicine